=== PATIENT | female | born 1935 | race Caucasian/White ===

== ENCOUNTER 2017-07-05 10:09 | Inpatient (IN) ==
[2017-07-05] MEDS ORDERED: methylPREDNISolone SOD SUC 125 MG/2 ML VIAL IV STA (10:43)
[2017-07-05] MEDS ORDERED: ALBUTEROL/IPRATROPIUM 3 ML NEB RESP TX STA (10:43)
[2017-07-05] MEDS ORDERED: methylPREDNISolone SOD SUC 125 MG/2 ML VIAL ONE (10:49)
--- NOTE | 2017-07-05 11:05 | XRay Report ---
XR chest 1V portable Indication: Shortness of breath Comparison: 02 July 2017 Findings: The heart and mediastinum are stable in size and configuration. The pulmonary vascularity is increased with bilateral increased interstitial lung density, slightly improved compared to previous. No other lung infiltrates, effusions, pneumothorax or other abnormality is demonstrated. Impression: Findings suggest cardiac decompensation, slightly improved when compared to previous. PROCEDURE INTERPRETED AT [facility] DEPARTMENT OF RADIOLOGY Final Report Signed by: Dr. Codey Cabral
[2017-07-05 11:21] LABS: Basophils % 0.5 % (0.0-0.8); Eosinophils # 0.1 10*3/uL (0.0-0.87); Eosinophils % 2.2 % (0.00-10.9); Hematocrit 28.9 VOL% (35.7-47.0); Hemoglobin 9.3 GM/DL (12.0-16.0); Immature Granulocytes % 0.5 %; Immature Granulocytes Absolute 0.02 #; Lymphocytes # 0.5 10*3/uL (1.4-4.0); Lymphocytes % 12.3 % (21.3-54.2); Mean Corpuscular HGB Conc 32.2 GM/DL (32-36); Mean Corpuscular Hemoglobin 27 PG (27-34); Mean Platelet Volume 9.6 FL (9.6-12.0); Monocytes # 0.3 10*3/uL (0.11-0.8); Monocytes % 6.5 % (1.7-12.7); Neutrophils # 3.2 10*3/uL (1.4-7.4); Platelet Count 192 T/CUMM (130-400); Red Blood Count 3.44 MC/CUMM (3.8-5.5); Red Cell Distribution Width 15.5 % (9.3-17.3); White Blood Count 4.1 T/CUMM (4-12)
[2017-07-05] MEDS ORDERED: BUMETANIDE 1 MG/4 ML VIAL IV STA (11:23)
[2017-07-05] MEDS ORDERED: BUMETANIDE 1 MG/4 ML VIAL ONE (11:29)
--- NOTE | 2017-07-05 11:59 | Emergency Department Note ---
Christiano Bah Gwan, am scribing for, and in the presence of, Tom Leos MD 10:35. Deric Bah Phillip K, MD, personally performed the services described in this documentation, ascribed by Nemo Alvarado in my presence, and it is both accurate and complete . Arrival - Arrival Chief Complaint: Shortness of Breath ED Nursing Triage Note: PT TO ER 11 VIA EMS COMING FROM HOME WITH C/O HAVING SOB ONSET WEDNESDAY. PT WAS SEEN HERE IN ER FOR SAME COMPLAINT AND WAS DIAGNOSED WITH CHF/ BRONCHITIS SENT HOME ON LEVAQUIN STATES SHE JUST ISNT ANY BETTER. Mode of Arrival: Stretcher Limitations: No Limitations Source: Patient, Old Records Reviewed, RN Notes Reviewed Time Seen by Provider: 07/05/17 10:33 - History of Present Illness HPI Narrative: Patient is a 81 y/o female who presents to the ED via EMS with a c/o SOB, productive cough with clear sputum and RANGEL with an onset 1 week ago. Pt has a PMHx of MA, HTN, CAD, Afib, COPD, pneumonia, asthma, colon ca and stent placement. Patient stated that she was last seen in ED 06/22/2017 and 2016. During those visits, pt was dx with Bronchitis and CHF. Patient was give Levaquin with no relief. She continued to note that her sxs have progressively worsened prompting her visit to ED this morning for further evaluation. She denies having any chills or fever. Patient is followed by Dr. Yadav. No other problems/complaints reported in ED. Onset (ago): day(s) Consistency: constant Severity: moderate Allergies/Adverse Reactions: Allergies Allergy/AdvReac Type Severity Reaction Status Date / Time ceftriaxone [From Rocephin] Allergy Severe HIVES Verified 07/05/17 10:25 Iodinated Contrast Media - Allergy Severe ANAPHYLAXIS Verified 07/05/17 10:25 Oral and [Iodinated Contrast Media - IV Dye] sulfamethoxazole Allergy Severe Swelling Verified 07/05/17 10:25 [From Bactrim] of Lip/Tongue/Throat trimethoprim [From Bactrim] Allergy Severe Swelling Verified 07/05/17 10:25 of Lip/Tongue/Throat Corticosteroids AdvReac Severe Chest Pain Verified 07/05/17 10:25 (Glucocorticoids) morphine AdvReac Severe Cramping Verified 07/05/17 10:25 of the Muscles albuterol AdvReac Intermediate Palpitation Verified 07/05/17 10:25 s dicyclomine [From Bentyl] AdvReac Mild Nausea Verified 07/05/17 10:25 meperidine [From Demerol] AdvReac Mild Anxiety Verified 07/05/17 10:25 Home Medications: Home Medications Medication Instructions Recorded Confirmed Type Bumetanide Tab [Bumex Tab] 2 mg PO BID 08/01/15 07/05/17 History Dexlansoprazole [Dexilant] 60 mg PO DAILY 08/01/15 07/05/17 History Aspirin EC Tab 325 mg PO DAILY 11/01/15 07/05/17 History Cyanocobalamin Inj [Vitamin B12 1,000 mcg IM WE 11/01/15 07/05/17 History Inj] Amiodarone Tab [Cordarone Tab] 200 mg PO DAILY 02/04/16 07/05/17 History Fexofenadine [Carol] 60 mg PO DAILY 02/04/16 07/05/17 History Magnesium Chloride [Mag Delay] 64 mg PO BID 02/04/16 07/05/17 History Bisoprolol [Zebeta] 5 mg PO BID 07/31/16 07/05/17 History Potassium Chloride 20 meq PO BID 07/31/16 07/05/17 History Roflumilast [Daliresp] 500 mcg PO DAILY 07/31/16 07/05/17 History Ferrous Sulfate [Ferrous Sulfate 325 mg PO DAILY #30 capsule 08/03/16 07/05/17 Rx Cap] ALPRAZolam [Alprazolam] 1 mg PO BEDTIME 07/05/17 07/05/17 History Fexofenadine [Carol] 180 mg PO DAILY 07/05/17 07/05/17 History Levalbuterol Neb [Xopenex Neb] 0.63 mg RESP TX RT Q8H 07/05/17 07/05/17 History Review of System - Review of System 12 point system: reviewed and no additional remarkable complaints except as stated - Review of System Constitutional: Present: as per HPI. Absent: chills, fever Respiratory: Present: as per HPI, cough Neurological: Present: as per HPI, headache Medical,Surgical,& Family Hx - Medical History Cardio: History of: Cardiac Dysrhythmia (A-fib), CHF (diastolic, h/o multiled echos with nL lvef), CAD, Hypertension, MA Neurology: History of: Seizures, Vertigo (dizziness post nerve block 11/01/2015) HEENT: History of: Eye Problem (cataracts) Rheumatology: History of;: Rheumatoid Arthritis Respiratory: History of: Asthma, Bronchitis, COPD, Pneumonia Gastrointestinal: History of: Gastrointestinal Cancer (COLON CANCER) Musculoskeletal: History of: Back/Neck Problems, Musculoskeletal Problems ( arthritis) Other: History of: Cancer - Surgical History Cardiac Surgeries: Sugical HX of: Cardiac Catheterization (STENTS PER TOUCHSTONE ) HEENT Surgeries: Surgical HX of: Eye Surgery (cataracts) Abdominal Surgeries: Surgical HX of: Appendectomy, Cholecystectomy, Colonoscopy (COLECTOMY) Reproductive Surgeries: Surgical HX of;: Hysterectomy Orthopedic Surgeries: Comment Only: Total Hip Replacement (left hip hardware) - Family History Family History: Reports;: Family Heart Disease - Social History Smoking Status: Never smoker Frequency of Alcohol Use: None Type of Drug Use: None Exam Vital Signs: Vital Signs Temperature 99.0 F 07/05/17 10:17 Pulse Rate 63 07/05/17 11:12 Respiratory Rate 16 07/05/17 11:12 Blood Pressure 107/40 07/05/17 10:17 O2 Sat by Pulse Oximetry 99 07/05/17 11:12 - General General appearance: alert, in no apparent distress - Head Head exam: Present: atraumatic, normocephalic - Eye Eye exam: Present: normal appearance, PERRL, EOMI - ENT ENT exam: Present: normal oropharynx, mucous membranes moist, TM's normal bilaterally, normal external ear exam - Neck Neck exam: Present: full ROM, trachea midline. Absent: tenderness - Chest Chest inspection: Present: symmetric chest wall rise. Absent: tenderness - Respiratory Respiratory exam: Present: rales (Bilaterally), wheezes (Patient has diffuse expiratory wheezes.) - Cardiovascular Cardiovascular exam: Present: normal rhythm, bradycardia - Abdominal Exam Abdominal exam: Present: soft, normal bowel sounds. Absent: distention, tenderness - Extremities Exam Extremities exam: Present: other (Patient has trace edema noted to left leg due to hx of left hip replacement. ). Absent: full ROM (Patient has limited ROm to left leg consistent with hx of left hip replacement. ) - Back Exam Back exam: Present: full ROM. Absent: tenderness - Neurological Exam Neurological exam: Present: alert, oriented X3, CN II-XII intact. Absent: motor sensory deficit - Psychiatric Psychiatric exam: Present: normal affect, normal mood - Skin Skin exam: Present: other (Patient has trace edema noted to left leg due to hx of left hip replacement. ) Course Course Narrative: Patient given duo nebs and Bumex in the ED. she continued to have some mild CHF on her chest x-ray and also some bronchospasm. She is not improving with outpatient therapy so we will admit to the hospitalist. Results - Labs CBC & BMP: 07/05/17 10:54 Lab Results: I have reviewed the patients labs Labs: Laboratory Tests 07/05/17 10:54 WBC 4.1 RBC 3.44 L Hgb 9.3 L Hct 28.9 L MCV 84.0 L Plt Count 192 Neut % (Auto) 78.0 H Lymph % (Auto) 12.3 L Lymph # (Auto) 0.5 L Laboratory Tests 07/05/17 10:54 D-Dimer, Quantitative 1.1 - Diagnostic Findings Procedure: Chest x-ray: report reviewed by me (Findings suggest cardiac decompensation, slightly improved when compared to previous. ) Critical Care Time Critical Care Time: No Disposition Clinical Impression: Acute exacerbation of chronic obstructive airways disease, Congestive heart failure, Anemia Case discussed with: patient, patient's family Disposition: Still a Patient Condition: Guarded Additional Instructions: Admit to the hospitalist.
[2017-07-05 12:06] LABS: Albumin 2.8 G/DL (3.4-5.0); Bilirubin,Total 0.4 MG/DL (0.2-1.0); Calcium 8.3 MG/DL (8.5-10.1); Magnesium 2.3 MG/DL (1.8-2.4); Potassium 3.9 MMOL/L (3.5-5.1); Total Protein 6.7 G/DL (6.4-8.3); Troponin I Only 0.023 NG/ML (0.00-0.045)
[2017-07-05] MEDS ORDERED: diphenhydrAMINE CAP 25 MG CAPSULE PO PRN (12:42)
[2017-07-05] MEDS ORDERED: guaiFENesin/DM ER 600-30 MG TABLET PO PRN (12:42)
[2017-07-05] MEDS ORDERED: ONDANSETRON 4 MG/2 ML VIAL IV PRN (12:42)
[2017-07-05] MEDS ORDERED: DOCUSATE SODIUM 100 MG CAPSULE PO PRN (12:42)
[2017-07-05] MEDS ORDERED: ACETAMINOPHEN 325 MG TABLET PO PRN (12:42)
--- NOTE | 2017-07-05 12:54 | Hospitalist History & Physical ---
Assessment and Plan - Time spent with patient Time spent with patient: Greater than 30 minutes (1) Acute exacerbation of CHF (congestive heart failure) Status: Acute Assessment and plan: 81-year-old white female with history of CAD status post SC 5, CHF, hypertension, colon cancer admitted by the hospitalist with CHF exacerbation. She will be placed on a monitored bed and gently diuresed due to her chronic kidney disease. Dr. Sylvester is her esl instructional assistant so cardiology will be consulted to evaluate. She does have bradycardia as well and this seems to be a new finding in the last few weeks. We will continue to monitor her renal function and blood pressure along with heart rate. Dr. Billingsley will see and examine patient and further recommendations to follow. Current Visit: Yes (2) Shortness of breath Status: Acute Current Visit: Yes (3) Bradycardia Status: Acute Current Visit: Yes (4) CKD (chronic kidney disease) Status: Acute Current Visit: No (5) CAD (coronary artery disease) Status: Acute Current Visit: No (6) H/O myocardial infarction, greater than 8 weeks Status: Acute Current Visit: No History of Present Illness Chief complaint: Shortness of breath and fatigue History of present illness: Ms. Lazo is a 81 year old white female with history of SC 5, hypertension, CAD, COPD, complicated pneumonia, asthma, and colon cancer presenting to the ED with a four-day history of progressive shortness of breath and fatigue with headache and cough. Patient was seen in the ED on 06/22/2017 and again on 2016 she was diagnosed with bronchitis and CHF and given Levaquin. Patient states this did not help and she progressively had more cough more shortness of breath and increasing fatigue. Upon exam, patient does have some conversational dyspnea with some mild rhonchi with the left greater than right. She has some mild pedal edema of the left lower extremity that she states has been there since her hip fracture a year ago. She has a low-grade fever of 99 and she has bradycardic with her heart rate in the 50s. She is satting 94% on 2 L of oxygen. Her creatinine is 1.7 which is her baseline per previous admissions, BNP is elevated at 1102 otherwise her labs are relatively normal. Chest ray is showing some cardiac decompensation with no infiltrates or effusions. Patient's esl instructional assistant is Dr. Sylvester and her pulmonary doctor is Dr. Khan. After discussion with Dr. Leos the ED physician and Dr. Billingsley the admitting hospitalist, it was agreed patient would be admitted for further evaluation and treatment. Patient's medicines have been reconciled and she is a full code. Home Medications Medication Instructions Recorded Confirmed Type Bumetanide Tab [Bumex Tab] 2 mg PO BID 08/01/15 07/05/17 History Dexlansoprazole [Dexilant] 60 mg PO DAILY 08/01/15 07/05/17 History Aspirin EC Tab 325 mg PO DAILY 11/01/15 07/05/17 History Cyanocobalamin Inj [Vitamin B12 1,000 mcg IM WE 11/01/15 07/05/17 History Inj] Amiodarone Tab [Cordarone Tab] 200 mg PO DAILY 02/04/16 07/05/17 History Fexofenadine [Carol] 60 mg PO DAILY 02/04/16 07/05/17 History Magnesium Chloride [Mag Delay] 64 mg PO BID 02/04/16 07/05/17 History Bisoprolol [Zebeta] 5 mg PO BID 07/31/16 07/05/17 History Potassium Chloride 20 meq PO BID 07/31/16 07/05/17 History Roflumilast [Daliresp] 500 mcg PO DAILY 07/31/16 07/05/17 History Ferrous Sulfate [Ferrous Sulfate 325 mg PO DAILY #30 capsule 08/03/16 07/05/17 Rx Cap] ALPRAZolam [Alprazolam] 1 mg PO BEDTIME 07/05/17 07/05/17 History Fexofenadine [Carol] 180 mg PO DAILY 07/05/17 07/05/17 History Levalbuterol Neb [Xopenex Neb] 0.63 mg RESP TX RT Q8H 07/05/17 07/05/17 History Allergies Allergy/AdvReac Type Severity Reaction Status Date / Time ceftriaxone [From Rocephin] Allergy Severe HIVES Verified 07/05/17 10:25 Iodinated Contrast Media - Allergy Severe ANAPHYLAXIS Verified 07/05/17 10:25 Oral and [Iodinated Contrast Media - IV Dye] sulfamethoxazole Allergy Severe Swelling Verified 07/05/17 10:25 [From Bactrim] of Lip/Tongue/Throat trimethoprim [From Bactrim] Allergy Severe Swelling Verified 07/05/17 10:25 of Lip/Tongue/Throat Corticosteroids AdvReac Severe Chest Pain Verified 07/05/17 10:25 (Glucocorticoids) morphine AdvReac Severe Cramping Verified 07/05/17 10:25 of the Muscles albuterol AdvReac Intermediate Palpitation Verified 07/05/17 10:25 s dicyclomine [From Bentyl] AdvReac Mild Nausea Verified 07/05/17 10:25 meperidine [From Demerol] AdvReac Mild Anxiety Verified 07/05/17 10:25 Medical,Surgical,& Family Hx - Medical History Cardio: History of: Cardiac Dysrhythmia (A-fib), CHF (diastolic, h/o multiled echos with nL lvef), CAD, Hypertension, SC Neurology: History of: Seizures, Vertigo (dizziness post nerve block 11/01/2015) HEENT: History of: Eye Problem (cataracts) Rheumatology: History of;: Rheumatoid Arthritis Respiratory: History of: Asthma, Bronchitis, COPD, Pneumonia Gastrointestinal: History of: Gastrointestinal Cancer (COLON CANCER) Musculoskeletal: History of: Back/Neck Problems, Musculoskeletal Problems ( arthritis) Other: History of: Cancer - Surgical History Cardiac Surgeries: Sugical HX of: Cardiac Catheterization (STENTS PER TOUCHSTONE ) HEENT Surgeries: Surgical HX of: Eye Surgery (cataracts) Abdominal Surgeries: Surgical HX of: Appendectomy, Cholecystectomy, Colonoscopy (COLECTOMY) Reproductive Surgeries: Surgical HX of;: Hysterectomy Orthopedic Surgeries: Comment Only: Total Hip Replacement (left hip hardware) - Family History Family History: Reports;: Family Heart Disease - Social History Smoking Status: Never smoker Frequency of Alcohol Use: None Type of Drug Use: None Marital Status: Lives With:: Spouse Functional capacity: uses cane/walker 12 point system: reviewed and no additional remarkable complaints except as stated Exam - Constitutional Vitals: Period Temp Pulse Resp BP Sys/Dorado Pulse Ox Last 24 Hr 99.0 F-99.0 F 53-63 15-20 107-107/40-40 94-99 Exam: Constitutional System: Mild distress. No tremulousness. Head: Normocephalic, atraumatic. Ears, Nose and Throat System: No evidence of Otitis or Mastoiditis. No epistaxis or discharge Eyes System: Pupils equal, round, and reactive. Extraocular muscles intact. Neck: Supple, without adenopathy, No jugular venous distention. No thyromegaly, neck mass, or prior surgery apparent. Respiratory System: Chest mild rhonchi, left greater than right to auscultation. Cardiovascular System: Heart with bradycardic rate and regular rhythm. No murmur. GI System: Abdomen soft, nontender. Normo active bowel sounds present. Well- healed midline incision Musculoskeletal System: limbs with left lower extremity with mild pedal edema. Diminished distal pulses. Neurological System: No discernable sensory deficit. No aphasia Psychiatric System: Conversation is rational Results - Labs CBC & BMP: 07/05/17 10:54 07/05/17 10:54 Lab Results: I have reviewed the past 24 hour labs - Impressions EKG is pending - Diagnostic Findings Procedure: Chest x-ray: report reviewed by me (Mild cardiac decompensation, no effusions or infiltrates)
[2017-07-05] MEDS ORDERED: BISOPROLOL 5 MG TABLET PO SCH (13:00)
[2017-07-05] MEDS ORDERED: ENOXAPARIN 30 MG/0.3 ML SYRINGE SUBCUT SCH (13:00)
[2017-07-05] MEDS ORDERED: NON-FORMULARY MEDICATION (Dexlansoprazole [Dexilant] 60 MG) PO SCH (13:00)
[2017-07-05 13:51] LABS: Risk Ratio 3.22; VLDL CHOLESTEROL 12.8 MG/DL
--- NOTE | 2017-07-05 14:31 | Cardiology Consult Note ---
<Margo Kahn E - Last Filed: 07/05/17 14:22> Assessment and Plan - Time spent with patient Time spent with patient: Greater than 30 minutes (due to assessment, plan, documentation, and medication review) (1) Acute exacerbation of CHF (congestive heart failure) Status: Acute Assessment and plan: See plan of care listed below. Current Visit: Yes Qualifiers: Congestive heart failure type: diastolic Qualified Code(s): I50.33 - Acute on chronic diastolic (congestive) heart failure (2) Shortness of breath Status: Acute Assessment and plan: See plan of care listed below. Current Visit: Yes (3) Bradycardia Status: Acute Assessment and plan: See plan of care listed below. Current Visit: Yes (4) CKD (chronic kidney disease) Status: Chronic Assessment and plan: See plan of care listed below. Current Visit: No Qualifiers: Chronic kidney disease stage: stage 4 (severe) Qualified Code(s): N18.4 - Chronic kidney disease, stage 4 (severe) (5) CAD (coronary artery disease) Status: Chronic Assessment and plan: See plan of care listed below. Current Visit: No (6) H/O myocardial infarction, greater than 8 weeks Status: Chronic Assessment and plan: See plan of care listed below. Current Visit: No (7) Paroxysmal atrial fibrillation Status: Chronic Assessment and plan: See plan of care listed below. Current Visit: No (8) Congestive heart failure Status: Chronic Current Visit: Yes Qualifiers: Congestive heart failure type: diastolic Congestive heart failure chronicity: acute on chronic Qualified Code(s): I50.33 - Acute on chronic diastolic (congestive) heart failure (9) COPD (chronic obstructive pulmonary disease) Status: Chronic Assessment and plan: See plan of care listed below. Current Visit: Yes History of Present Illness - Data of Consult Patient: known to practice within the last 3 years Consult date: 07/05/17 Requesting Physician: Destiny Woodruff Primary care physician: Krishna Khan - Consult Narrative Reason for consult: SOB, bradycardia, CHF History of present illness: Relief Mate: Dr. Sylvester PCP: Dr. Khan Ms. Lazo is a 81 y/o WF with a history of coronary artery disease s/p PCI, paroxysmal atrial fibrillation (on amiodarone), chronic diastolic heart failure , COPD, chronic renal insufficiency, chronic pain, mitral regurgitation, GERD, former smoker, hyperlipidemia, and anxiety. She also has a history of a left femur fracture approximately a year and a half ago. She has had numerous issues with this leg and it is now 2-1/2 inches shorter than the right one. She subsequently had a total hip replacement which has not improved her situation and she is to see Dr. Jem Wen in [place] regarding consideration of a redo of her surgery. She had a recent echocardiogram done 06/28/2017 which revealed EF 50%, moderate LVH, moderate MR, mild TR, mild MS. Ms. Fung presented to the emergency room this morning with a week long history of progressive shortness of breath and fatigue accompanied by headache and productive cough of clear/white sputum. She has also reported low-grade fever. She was seen in the emergency room twice within the past 2 weeks. At the 06/22/2017 visit, she was diagnosed with UTI and discharged. Her subsequent visit, she was diagnosed with bronchitis and CHF but she declined hospitalization. Upon arrival, her BNP was 1102, chest xray showed cardiac decompensation. Her D-dimer was mildly elevated at 1.1. Creatinine 1.7. Potassium 3.9, and magnesium 2.3. She is mildly anemic with H&H 9.3 and 28.9. EKG shows sinus bradycardia. She denies recent chest pain/burning or palpitations. She states that when her blood pressure rises, she tends to become fidgety, but she reports she has not felt that way recently. Dr. Gann to follow with further plan and addendum. IMPRESSION/PLAN: - CHF EXACERBATION: BNP 1102 with CXR suggesting cardiac decompensation. Continue aspirin, bumex, lasix. - SHORTNESS OF BREATH: Likely related to her CHF. We will continue diuresing her. - BRADYCARDIA: Given her heart failure symptoms and PAF, she would be best served with low dose beta leon and amiodarone to keep her from having frequent paroxysms of atrial fibrillation. We'll continue her amiodarone with hold parameters and decrease her bisoprolol dosage to 2.5 mg po BID with hold parameters. - CHRONIC KIDNEY DISEASE: Stage 4. Will need to avoid nephrotoxic agents. Will continue to monitor BMP. - CORONARY ARTERY DISEASE: Patient has a history of CAD s/p PCI. - H/O MYOCARDIAL INFARCTION: I've found no records on file detailing prior stent placement but she is reported to have 5 prior MD's and states her last C was 3 years ago. - PAROXYSMAL ATRIAL FIBRILLATION: Currently in sinus bradycardia. Patient has had frequent palpitations in the past, but tends to have bradycardia with saul blocking agents or antiarrhythmics. Continue aspirin for stroke prevention. She was recently in atrial fibrillation on 06/22/17. CHADSVASC score is 6; however she does have some mild anemia with H&H 9.3 and 28.9 which appears to be chronic. Given her age, creatinine, and weight, she would need low dose Eliquis for anticoagulation. We'll go ahead and start her on this and discontinue her Lovenox. If her atrial fibrillation continues to be difficult to manage due to her tachycardia and bradycardia, she may benefit from pacemaker implant. For now , we will try to maintain her with medications. - CHRONIC DIASTOLIC CHF: With recent EF 50%. BNP 1102 upon admission. Creatinine 1.7. Chest xray suggests cardiac decompensation. - COPD: Patient reports in the past when she has been treated with steroids, this has sent her in to CHF. CC: Darshan Billingsley MD - Home Medications and Allergies Home Medications: Home Medications Medication Instructions Recorded Confirmed Type Bumetanide Tab [Bumex Tab] 2 mg PO BID 08/01/15 07/05/17 History Dexlansoprazole [Dexilant] 60 mg PO DAILY 08/01/15 07/05/17 History Aspirin EC Tab 325 mg PO DAILY 11/01/15 07/05/17 History Cyanocobalamin Inj [Vitamin B12 1,000 mcg IM WE 11/01/15 07/05/17 History Inj] Amiodarone Tab [Cordarone Tab] 200 mg PO DAILY 02/04/16 07/05/17 History Fexofenadine [Carol] 60 mg PO DAILY 02/04/16 07/05/17 History Magnesium Chloride [Mag Delay] 64 mg PO BID 02/04/16 07/05/17 History Bisoprolol [Zebeta] 5 mg PO DIRECTED 07/31/16 07/05/17 History Potassium Chloride 20 meq PO BID 07/31/16 07/05/17 History Roflumilast [Daliresp] 500 mcg PO DAILY 07/31/16 07/05/17 History ALPRAZolam [Alprazolam] 1 mg PO BEDTIME 07/05/17 07/05/17 History Levalbuterol Neb [Xopenex Neb] 0.63 mg RESP TX RT Q8H 07/05/17 07/05/17 History amLODIPine [Norvasc] 5 mg PO DAILY 07/05/17 07/05/17 History Allergies/Adverse Reactions: Allergies Allergy/AdvReac Type Severity Reaction Status Date / Time ceftriaxone [From Rocephin] Allergy Severe HIVES Verified 07/05/17 10:25 Iodinated Contrast Media - Allergy Severe ANAPHYLAXIS Verified 07/05/17 10:25 Oral and [Iodinated Contrast Media - IV Dye] sulfamethoxazole Allergy Severe Swelling Verified 07/05/17 10:25 [From Bactrim] of Lip/Tongue/Throat trimethoprim [From Bactrim] Allergy Severe Swelling Verified 07/05/17 10:25 of Lip/Tongue/Throat Corticosteroids AdvReac Severe Chest Pain Verified 07/05/17 10:25 (Glucocorticoids) morphine AdvReac Severe Cramping Verified 07/05/17 10:25 of the Muscles albuterol AdvReac Intermediate Palpitation Verified 07/05/17 10:25 s dicyclomine [From Bentyl] AdvReac Mild Nausea Verified 07/05/17 10:25 meperidine [From Demerol] AdvReac Mild Anxiety Verified 07/05/17 10:25 Review of systems: - Constitutional: Present: fatigue, fever(s), headache(s), As per HPI. Absent: anorexia, chills, daytime sleepiness, excessive sweating, frequent falls, increased appetite, lethargy, malaise, night sweats, stops breathing during sleep, weakness, weight gain, weight loss, . - EENT Eyes: Present: As per HPI. Absent: blurry vision, diplopia, loss of vision Ears: Present: As per HPI. Absent: decreased hearing, ear discharge, ear pain Nose, mouth and throat: Present: As per HPI. Absent: dysphagia, epistaxis, headache(s), hoarseness, lip swelling, nasal congestion, neck mass, neck pain, sinus pressure, sore throat, throat swelling, tongue swelling, vertigo - Cardiovascular: Present: dyspnea, dyspnea on exertion, edema, as per HPI. Absent: chest pain at rest, chest pain with activity, claudication, diaphoresis , radiating jaw, neck or arm pain, lightheadedness, orthopnea, palpitations, PND - Respiratory: Present: dyspnea, dyspnea on exertion, cough, as per HPI. Absent : hemoptysis, wheezing, snoring, pain on inspiration - Gastrointestinal: Present: As per HPI. Absent: abdominal pain, bloating, change in bowel habits, constipation, diarrhea, heartburn, hematemesis, hematochezia, loose stools, melena, nausea, vomiting - Genitourinary: Present: As per HPI. Absent: difficulty urinating, dysuria, flank pain, hematuria, nocturia, urinary frequency, urinary incontinence - Musculoskeletal: Present: As per HPI. Absent: arthralgias, back pain, joint swelling, limited range of motion, muscle cramps, muscle weakness, myalgias - Neurological: Present: abnormal gait, As per HPI. Absent: abnormal speech, behavioral changes, confusion, convulsions, disequilibrium, dizziness, focal weakness, frequent falls, headache(s), memory loss, numbness, paresthesias, radicular pain, syncope, tremor(s) - Psychiatric: Present: As per HPI. Absent: anxiety, confusion, depression, panic attacks - Endocrine: Present: fatigue, As per HPI. Absent: cold intolerance, heat intolerance, polydipsia, polyphagia - Hematologic/Lymphatic: Present: As per HPI. Absent: easy bleeding, easy bruising, lymphadenopathy Medical,Surgical,& Family Hx - Medical History Cardio: History of: Cardiac Dysrhythmia (A-fib), CHF (diastolic, h/o multiled echos with nL lvef), CAD, Hypertension, MD Neurology: History of: Seizures, Vertigo (dizziness post nerve block 11/01/2015) HEENT: History of: Eye Problem (cataracts) Rheumatology: History of;: Rheumatoid Arthritis Respiratory: History of: Asthma, Bronchitis, COPD, Pneumonia Gastrointestinal: History of: Gastrointestinal Cancer (COLON CANCER) Musculoskeletal: History of: Back/Neck Problems, Musculoskeletal Problems ( arthritis) Other: History of: Cancer - Surgical History Cardiac Surgeries: Sugical HX of: Cardiac Catheterization (STENTS PER TOUCHSTONE ) HEENT Surgeries: Surgical HX of: Eye Surgery (cataracts) Abdominal Surgeries: Surgical HX of: Appendectomy, Cholecystectomy, Colonoscopy (COLECTOMY) Reproductive Surgeries: Surgical HX of;: Hysterectomy Orthopedic Surgeries: Comment Only: Total Hip Replacement (left hip hardware) - Family History Family History: Reports;: Family Heart Disease - Social History Smoking Status: Never smoker Frequency of Alcohol Use: None Type of Drug Use: None Marital Status: Lives With:: Spouse Functional capacity: uses cane/walker Physical Examination Vital Signs Temp Pulse Resp BP Pulse Ox 99.0 F 55 L 20 107/40 94 L 07/05/17 10:17 07/05/17 10:17 07/05/17 10:17 07/05/17 10:17 07/05/17 10:17 Exam: General appearance: Appears well. Pleasant and cooperative. Overweight, no acute distress. Head exam: Present: normal inspection, normocephalic, atraumatic. Absent: hematoma, laceration Eye exam: Present: EOMI. Absent: conjunctival injection, nystagmus, periorbital swelling, scleral icterus, laceration to eyelids, jaundice Pupils: Present: PERRL. Absent: constricted, dilated, fixed, irregular, unequal ENT exam: Present: normal exam, normal external ear exam, mucous membranes moist. Neck exam: Present: normal inspection, midline trachea. Absent: masses, lymphadenopathy, tenderness, thyromegaly, carotid bruit Respiratory exam: Present: Bibasilar crackles posteriorly, otherwise clear to auscultation bilaterally. Absent: accessory muscle use, chest wall tenderness, rhonchi, wheezing. Cardiovascular exam: Present: regular rate and rhythm. Systolic murmur. Absent: gallop, JVD, rubs GI/Abdominal exam: Present: normal bowel sounds, soft. Absent: distended, firm , hernia, mass, tenderness. Extremities exam: Present: Impaired Gait, No Clubbing, No Cyanosis, Upper Extr. Pulses 2+, Lower Extr. Pulses 2+, Trace LLE edema. Capillary refill less than 3 seconds. Musculoskeletal: Present: No Fluid Collection, No Pain, Normal Range of Motion Back exam: Present: normal inspection. Absent: muscle spasm, vertebral tenderness Neurological exam: Present: awake, alert, oriented X3, Moves all extremities well without hemiparesis or paralysis. Grossly intact without resting or essential tremor Psychiatric exam: Present: normal affect, normal mood Skin exam: Present: normal color, warm, dry, intact. Absent: cyanosis, diaphoretic, rash, urticaria Result/EKG - Labs CBC & BMP: 07/05/17 10:54 07/05/17 10:54 Lab Results: I have reviewed the past 24 hour labs Labs: Laboratory Results - last 24 hr 07/05/17 07/05/17 07/05/17 10:54 10:54 10:54 WBC 4.1 RBC 3.44 L Hgb 9.3 L Hct 28.9 L MCV 84.0 L MCH 27 MCHC 32.2 RDW 15.5 Plt Count 192 MPV 9.6 Neut % (Auto) 78.0 H Lymph % (Auto) 12.3 L [place] % (Auto) 6.5 Eos % (Auto) 2.2 Baso % (Auto) 0.5 Neut # (Auto) 3.2 Lymph # (Auto) 0.5 L [place] # (Auto) 0.3 Eos # (Auto) 0.1 Baso # (Auto) 0.0 Immature Gran % 0.5 Nucleated RBC % 0.0 Immature Gran # 0.02 Nucleated RBCs # 0.00 Immature Plt Fraction 0.0 D-Dimer, Quantitative 1.1 Sodium 136 Potassium 3.9 Chloride 103 Carbon Dioxide 24 Anion Gap 12.9 BUN 12 Creatinine 1.70 H GFR Calculation 27 BUN/Creatinine Ratio 7.00 Glucose 105 Calculated Osmolality 271.0 L Calcium 8.3 L Magnesium 2.3 Total Bilirubin 0.40 AST 16 ALT 12 L Alkaline Phosphatase 130 H Troponin I 0.023 B-Natriuretic Peptide Total Protein 6.7 Albumin 2.8 L Globulin 3.9 H Albumin/Globulin Ratio 0.7 L Triglycerides Cholesterol LDL Cholesterol VLDL Cholesterol HDL Cholesterol Heart Disease Risk Ratio 07/05/17 07/05/17 10:54 10:54 WBC RBC Hgb Hct MCV MCH MCHC RDW Plt Count MPV Neut % (Auto) Lymph % (Auto) [place] % (Auto) Eos % (Auto) Baso % (Auto) Neut # (Auto) Lymph # (Auto) [place] # (Auto) Eos # (Auto) Baso # (Auto) Immature Gran % Nucleated RBC % Immature Gran # Nucleated RBCs # Immature Plt Fraction D-Dimer, Quantitative Sodium Potassium Chloride Carbon Dioxide Anion Gap BUN Creatinine GFR Calculation BUN/Creatinine Ratio Glucose Calculated Osmolality Calcium Magnesium Total Bilirubin AST ALT Alkaline Phosphatase Troponin I B-Natriuretic Peptide 1102 H Total Protein Albumin Globulin Albumin/Globulin Ratio Triglycerides 64 Cholesterol 145 LDL Cholesterol 87.0 VLDL Cholesterol 12.8 HDL Cholesterol 45 Heart Disease Risk Ratio 3.22 - EKG EKG results: interpreted by me, sinus rhythm EKG shows: bradycardia <Junie Gann - Last Filed: 07/05/17 17:09> History of Present Illness - Consult Narrative History of present illness: I have personally interviewed and evaluated the patient, reviewed the chart and discussed medical decision-making with practitioner Femi. I have read this note and agree with her documentation here in. CC: Darshan Billingsley MD Physical Examination Vital Signs Temp Pulse Resp BP Pulse Ox 99.0 F 55 L 20 107/40 94 L 07/05/17 10:17 07/05/17 10:17 07/05/17 10:17 07/05/17 10:17 07/05/17 10:17 Result/EKG - Labs CBC & BMP: 07/05/17 10:54 07/05/17 10:54 Labs: Laboratory Results - last 24 hr 07/05/17 07/05/17 07/05/17 10:54 10:54 10:54 WBC 4.1 RBC 3.44 L Hgb 9.3 L Hct 28.9 L MCV 84.0 L MCH 27 MCHC 32.2 RDW 15.5 Plt Count 192 MPV 9.6 Neut % (Auto) 78.0 H Lymph % (Auto) 12.3 L [place] % (Auto) 6.5 Eos % (Auto) 2.2 Baso % (Auto) 0.5 Neut # (Auto) 3.2 Lymph # (Auto) 0.5 L [place] # (Auto) 0.3 Eos # (Auto) 0.1 Baso # (Auto) 0.0 Immature Gran % 0.5 Nucleated RBC % 0.0 Immature Gran # 0.02 Nucleated RBCs # 0.00 Immature Plt Fraction 0.0 D-Dimer, Quantitative 1.1 Sodium 136 Potassium 3.9 Chloride 103 Carbon Dioxide 24 Anion Gap 12.9 BUN 12 Creatinine 1.70 H GFR Calculation 27 BUN/Creatinine Ratio 7.00 Glucose 105 Calculated Osmolality 271.0 L Calcium 8.3 L Magnesium 2.3 Total Bilirubin 0.40 AST 16 ALT 12 L Alkaline Phosphatase 130 H Troponin I 0.023 B-Natriuretic Peptide Total Protein 6.7 Albumin 2.8 L Globulin 3.9 H Albumin/Globulin Ratio 0.7 L Triglycerides Cholesterol LDL Cholesterol VLDL Cholesterol HDL Cholesterol Heart Disease Risk Ratio 10/02/17 10/02/17 10:54 10:54 WBC RBC Hgb Hct MCV MCH MCHC RDW Plt Count MPV Neut % (Auto) Lymph % (Auto) [place] % (Auto) Eos % (Auto) Baso % (Auto) Neut # (Auto) Lymph # (Auto) [place] # (Auto) Eos # (Auto) Baso # (Auto) Immature Gran % Nucleated RBC % Immature Gran # Nucleated RBCs # Immature Plt Fraction D-Dimer, Quantitative Sodium Potassium Chloride Carbon Dioxide Anion Gap BUN Creatinine GFR Calculation BUN/Creatinine Ratio Glucose Calculated Osmolality Calcium Magnesium Total Bilirubin AST ALT Alkaline Phosphatase Troponin I B-Natriuretic Peptide 1102 H Total Protein Albumin Globulin Albumin/Globulin Ratio Triglycerides 64 Cholesterol 145 LDL Cholesterol 87.0 VLDL Cholesterol 12.8 HDL Cholesterol 45 Heart Disease Risk Ratio 3.22
[2017-07-05] MEDS: LEVALBUTEROL 0.63 MG/3 ML NEB RESP TX SCH (14:45)
[2017-07-05] MEDS: FUROSEMIDE 40 MG/4 ML VIAL IV SCH ×2 (15:39→20:29)
[2017-07-05] MEDS: PANTOPRAZOLE 40 MG TABLET PO SCH (15:40)
[2017-07-05] MEDS: AMIODARONE 200 MG TABLET PO SCH (15:42)
[2017-07-05] MEDS: ASPIRIN EC 325 MG TABLET PO SCH (15:42)
[2017-07-05] MEDS: BUMETANIDE 1 MG TABLET PO SCH ×2 (15:42→20:26)
[2017-07-05] MEDS: POTASSIUM CHLORIDE 20 MEQ TABLET PO SCH ×2 (15:43→20:28)
[2017-07-05] MEDS: MAGNESIUM CHLORIDE 64 MG TABLET PO SCH ×2 (15:43→20:27)
[2017-07-05] MEDS: ROFLUMILAST 500 MCG TABLET PO SCH (15:43)
[2017-07-05] MEDS: FERROUS SULFATE 325 MG TABLET PO SCH (16:10)
[2017-07-05] MEDS: BISOPROLOL 5 MG TABLET PO SCH (20:27)
[2017-07-05] MEDS: ALPRAZolam 0.5 MG TABLET PO SCH (20:27)
[2017-07-05] MEDS: APIXABAN 2.5 MG TABLET PO SCH (20:37)
[2017-07-06] MEDS: LEVALBUTEROL 0.63 MG/3 ML NEB RESP TX SCH ×4 (00:12→23:27)
[2017-07-06] MEDS: FUROSEMIDE 40 MG/4 ML VIAL IV SCH ×4 (02:23→22:40)
[2017-07-06 07:08] LABS: Basophils % 0.7 % (0.0-0.8); Eosinophils # 0.1 10*3/uL (0.0-0.87); Eosinophils % 2.4 % (0.00-10.9); Hematocrit 32.9 VOL% (35.7-47.0); Hemoglobin 10.5 GM/DL (12.0-16.0); Immature Granulocytes % 0.3 %; Immature Granulocytes Absolute 0.02 #; Mean Corpuscular HGB Conc 31.9 GM/DL (32-36); Mean Corpuscular Hemoglobin 27 PG (27-34); Mean Corpuscular Volume 84.8 FL (87-102); Mean Platelet Volume 9.6 FL (9.6-12.0); Monocytes # 0.4 10*3/uL (0.11-0.8); Monocytes % 7.3 % (1.7-12.7); Neutrophils # 4.3 10*3/uL (1.4-7.4); Neutrophils % 72.3 % (38.7-73.9); Platelet Count 286 T/CUMM (130-400); Red Blood Count 3.88 MC/CUMM (3.8-5.5); Red Cell Distribution Width 15.6 % (9.3-17.3); White Blood Count 5.9 T/CUMM (4-12)
--- NOTE | 2017-07-06 07:29 | DUMMY REPORT TO COMPLETE ORDER ---
See report scanned to EMR
[2017-07-06 07:39] LABS: Calcium 8.2 MG/DL (8.5-10.1); Magnesium 2.2 MG/DL (1.8-2.4); Osmolality,Calculated 270.8 MOS/KG (273-304); Potassium 3.6 MMOL/L (3.5-5.1)
[2017-07-06] MEDS: BUMETANIDE 1 MG TABLET PO SCH ×2 (08:58→20:57)
[2017-07-06] MEDS: PANTOPRAZOLE 40 MG TABLET PO SCH (08:58)
[2017-07-06] MEDS: MAGNESIUM CHLORIDE 64 MG TABLET PO SCH ×2 (08:58→20:59)
[2017-07-06] MEDS: ASPIRIN EC 325 MG TABLET PO SCH (08:59)
[2017-07-06] MEDS: AMIODARONE 200 MG TABLET PO SCH (08:59)
[2017-07-06] MEDS: APIXABAN 2.5 MG TABLET PO SCH (08:59)
[2017-07-06] MEDS: FERROUS SULFATE 325 MG TABLET PO SCH (08:59)
[2017-07-06] MEDS: POTASSIUM CHLORIDE 20 MEQ TABLET PO SCH ×2 (08:59→20:59)
[2017-07-06] MEDS: BISOPROLOL 5 MG TABLET PO SCH ×2 (09:00→20:58)
[2017-07-06] MEDS: ROFLUMILAST 500 MCG TABLET PO SCH (09:00)
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
--- NOTE | 2017-07-06 12:05 | Hospitalist Progress Note ---
Assessment and Plan - Time spent with patient Time spent with patient: Less than 30 minutes (1) Acute exacerbation of CHF (congestive heart failure) Status: Acute Assessment and plan: 81-year-old white female with history of CAD status post WI 5, CHF, hypertension, colon cancer admitted by the hospitalist with CHF exacerbation. She will be placed on a monitored bed and gently diuresed due to her chronic kidney disease. Dr. Sylvester is her color sprayer so cardiology will be consulted to evaluate. She does have bradycardia as well and this seems to be a new finding in the last few weeks. We will continue to monitor her renal function and blood pressure along with heart rate. Dr. Billingsley will see and examine patient and further recommendations to follow. 07/06/2017 patient feels much better this morning and she looks much better. She still has a few rales in her bilateral lung bases but much improved from admission. Her BNP is mildly higher at 1315 today yet she feels and looks better. Her creatinine is stable at 1.8. She is afebrile and she continues to be bradycardic with pulse in the 50s. Cardiology is following and managing with medications. Dr. Khan has also seen the patient this morning and recommended continuing current care. Dr. Billingsley will see and examine patient and further recommendations to follow. Current Visit: Yes Qualifiers: Congestive heart failure type: diastolic Qualified Code(s): I50.33 - Acute on chronic diastolic (congestive) heart failure (2) Shortness of breath Status: Acute Current Visit: Yes (3) Bradycardia Status: Acute Current Visit: Yes (4) CKD (chronic kidney disease) Status: Chronic Current Visit: No Qualifiers: Chronic kidney disease stage: stage 4 (severe) Qualified Code(s): N18.4 - Chronic kidney disease, stage 4 (severe) (5) CAD (coronary artery disease) Status: Chronic Current Visit: No (6) H/O myocardial infarction, greater than 8 weeks Status: Chronic Current Visit: No Hospitalist: Subjective Interval history: Patient feels much better this morning. She has had less coughing. She is eating and drinking well. Exam - Constitutional Vitals: Period Temp Pulse Resp BP Sys/Dorado Pulse Ox Last 24 Hr 98.0 F-99.5 F 56-66 16-24 117-131/46-60 91-100 Exam: 81-year-old white female, no acute distress, alert and oriented Chest with few rails bilateral lung bases left greater than right CV regular rate and rhythm Abdomen soft and nontender Extremities left with minimal pedal edema Results - Labs CBC & BMP: 07/06/17 04:38 07/06/17 04:38 Lab Results: I have reviewed the past 24 hour labs - Diagnostic Findings Procedure: Chest x-ray: pending
--- NOTE | 2017-07-06 13:11 | Ultrasound Report ---
Venous Doppler ultrasound bilateral lower extremities Indication: Edema Comparison: None available Findings: No evidence of echogenic, noncompressible thrombus seen in the visualized veins of the extremities. Color Doppler venous waveform pattern is within normal limits. Impression: No evidence of deep venous thrombosis. Ultrasound images stored and captured. PROCEDURE INTERPRETED AT [facility] DEPARTMENT OF RADIOLOGY Final Report Signed by: Dr. Codey Cabral
--- NOTE | 2017-07-06 14:14 | XRay Report ---
XR chest 1V portable Indication: Congestive heart failure Comparison: 05 July 2017 Findings: The heart and mediastinum are stable in size and configuration. The pulmonary vascularity is slightly decreased. No other lung infiltrates, effusions, pneumothorax or other abnormality is demonstrated. Impression: Findings suggest mild improvement cardiac decompensation. PROCEDURE INTERPRETED AT [facility] DEPARTMENT OF RADIOLOGY Final Report Signed by: Dr. Codey Cabral
--- NOTE | 2017-07-06 15:42 | Cardiology Progress Note ---
<Margo Kahn E - Last Filed: 07/06/17 16:29> Assessment and Plan - Time spent with patient Time spent with patient: Less than 30 minutes (1) Acute exacerbation of CHF (congestive heart failure) Status: Acute Assessment and plan: See plan of care listed below. Current Visit: Yes Qualifiers: Congestive heart failure type: diastolic Qualified Code(s): I50.33 - Acute on chronic diastolic (congestive) heart failure (2) Shortness of breath Status: Acute Assessment and plan: See plan of care listed below. Current Visit: Yes (3) Bradycardia Status: Acute Assessment and plan: See plan of care listed below. Current Visit: Yes (4) CKD (chronic kidney disease) Status: Chronic Assessment and plan: See plan of care listed below. Current Visit: No Qualifiers: Chronic kidney disease stage: stage 4 (severe) Qualified Code(s): N18.4 - Chronic kidney disease, stage 4 (severe) (5) CAD (coronary artery disease) Status: Chronic Assessment and plan: See plan of care listed below. Current Visit: No (6) H/O myocardial infarction, greater than 8 weeks Status: Chronic Assessment and plan: See plan of care listed below. Current Visit: No (7) Paroxysmal atrial fibrillation Status: Chronic Assessment and plan: See plan of care listed below. Current Visit: No (8) Congestive heart failure Status: Chronic Current Visit: Yes Qualifiers: Congestive heart failure type: diastolic Congestive heart failure chronicity: acute on chronic Qualified Code(s): I50.33 - Acute on chronic diastolic (congestive) heart failure (9) COPD (chronic obstructive pulmonary disease) Status: Chronic Assessment and plan: See plan of care listed below. Current Visit: Yes Cardiology - PN: Subj Interval history: Router Operator: Dr. Sylvester PCP: Dr. Khan SUMMARY: Ms. Lazo is a 81 y/o WF who is admitted to the hospital with CHF exacerbation after a week long history of shortness of breath and fatigue accompanied by headache and productive cough of clear/white sputum. She has a history of coronary artery disease s/p PCI, paroxysmal atrial fibrillation (on amiodarone), chronic diastolic heart failure, COPD, chronic renal insufficiency , chronic pain, mitral regurgitation, GERD, former smoker, hyperlipidemia, and anxiety. She had a recent echocardiogram done 06/28/2017 which revealed EF 50%, moderate LVH, moderate MR, mild TR, mild KS. We were consulted to aid in her management. JULY 06, 2017: Ms. Lazo is feeling much better today. We are continuing to follow her as she recovers from a CHF exacerbation and for her paroxysmal atrial fibrillation. With her mitral regurgitation, it would be best to keep her from having episodes of RVR. We will continue with amiodarone. Heart rates are in the 50s-60s and patient is asymptomatic. She reports she takes Zebeta at home PRN for palpitations. Although she has no significant edema and lungs sound much clearer today, her BNP is further elevated at 1315. We'll continue IV Lasix this evening and hopefully be able to transition to PO tomorrow. If she continues to do well, may be eligible for discharge as early as tomorrow. REVIEW OF SYSTEMS: CARDIAC: Denies chest pain, palpitations. RESPIRATORY: Denies shortness of breath. IMPRESSION/PLAN: - CHF EXACERBATION: Admission BNP 1102 with CXR suggesting cardiac decompensation. Continue aspirin, bumex, lasix. - SHORTNESS OF BREATH: Likely related to her CHF. We will continue diuresing her. - BRADYCARDIA: Given her heart failure symptoms, MR, and PAF, she would be best served with low dose beta leon and amiodarone to keep her from having frequent paroxysms of atrial fibrillation. We'll continue her amiodarone with hold parameters and decrease her bisoprolol dosage to 2.5 mg po BID with hold parameters. - CHRONIC KIDNEY DISEASE: Stage 4. Will need to avoid nephrotoxic agents. Will continue to monitor BMP. - CORONARY ARTERY DISEASE: Patient has a history of CAD s/p PCI. - H/O MYOCARDIAL INFARCTION: I've found no records on file detailing prior stent placement but she is reported to have 5 prior WI's and states her last [facility] was 3 years ago. - PAROXYSMAL ATRIAL FIBRILLATION: Currently in sinus bradycardia. Patient has had frequent palpitations in the past, but tends to have bradycardia with saul blocking agents or antiarrhythmics. Continue aspirin for stroke prevention. She was recently in atrial fibrillation on 06/22/17. CHADSVASC score is 6; however she does have some mild anemia with H&H 9.3 and 28.9 which appears to be chronic. We were going to start patient on chronic anticoagulaton; however, patient reports a history of prior GI hemorrhage approximately 10 years ago when she was previously on Coumadin which was discontinued by her GI doctor. I do not see a record of this in her chart; however, we will stop her NOAC and continue anticoagulation with Aspirin. - CHRONIC DIASTOLIC CHF: With recent EF 50%. BNP 1102 upon admission. Creatinine 1.8. - COPD: Patient reports in the past when she has been treated with steroids, this has sent her in to CHF. Exam (Progress Note) - Constitutional Vitals: Period Temp Pulse Resp BP Sys/Dorado Pulse Ox Last 24 Hr 98.2 F-99.6 F 58-66 16-24 111-131/52-60 91-100 Exam: General appearance: Appears well. Pleasant and cooperative. Overweight, no acute distress. Head exam: Present: normal inspection, normocephalic, atraumatic. Absent: hematoma, laceration Eye exam: Present: EOMI. Absent: conjunctival injection, nystagmus, periorbital swelling, scleral icterus, laceration to eyelids, jaundice Pupils: Present: PERRL. Absent: constricted, dilated, fixed, irregular, unequal ENT exam: Present: normal exam, normal external ear exam, mucous membranes moist. Neck exam: Present: normal inspection, midline trachea. Absent: masses, lymphadenopathy, tenderness, thyromegaly, carotid bruit Respiratory exam: Present: Scant crackles in right lower base posteriorly, much improved from yesterday, otherwise clear to auscultation bilaterally. Absent: accessory muscle use, chest wall tenderness, rhonchi, wheezing. Cardiovascular exam: Present: regular rate and rhythm. Systolic murmur. Absent: gallop, JVD, rubs GI/Abdominal exam: Present: normal bowel sounds, soft. Absent: distended, firm , hernia, mass, tenderness. Extremities exam: Present: Impaired Gait, No Clubbing, No Cyanosis, Upper Extr. Pulses 2+, Lower Extr. Pulses 2+, No significant BLE edema. Capillary refill less than 3 seconds. Musculoskeletal: Present: No Fluid Collection, No Pain, Normal Range of Motion Back exam: Present: normal inspection. Absent: muscle spasm, vertebral tenderness Neurological exam: Present: awake, alert, oriented X3, Moves all extremities well without hemiparesis or paralysis. Grossly intact without resting or essential tremor Psychiatric exam: Present: normal affect, normal mood Skin exam: Present: normal color, warm, dry, intact. Absent: cyanosis, diaphoretic, rash, urticaria Result/EKG - Labs CBC & BMP: 07/06/17 04:38 07/06/17 04:38 Lab Results: I have reviewed the past 24 hour labs Labs: Laboratory Results - last 24 hr 07/06/17 07/06/17 07/06/17 04:38 04:38 04:38 WBC 5.9 D RBC 3.88 Hgb 10.5 L Hct 32.9 L MCV 84.8 L MCH 27 MCHC 31.9 L RDW 15.6 Plt Count 286 D MPV 9.6 Neut % (Auto) 72.3 Lymph % (Auto) 17.0 L [place] % (Auto) 7.3 Eos % (Auto) 2.4 Baso % (Auto) 0.7 Neut # (Auto) 4.3 Lymph # (Auto) 1.0 L [place] # (Auto) 0.4 Eos # (Auto) 0.1 Baso # (Auto) 0.0 Immature Gran % 0.3 Nucleated RBC % 0.0 Immature Gran # 0.02 Nucleated RBCs # 0.00 Immature Plt Fraction 0.0 Sodium 137 Potassium 3.6 Chloride 98 Carbon Dioxide 31 Anion Gap 11.6 BUN 10 Creatinine 1.80 H GFR Calculation 25 BUN/Creatinine Ratio 5.00 L Glucose 77 Calculated Osmolality 270.8 L Calcium 8.2 L Magnesium 2.2 B-Natriuretic Peptide 1315 H - EKG EKG results: interpreted by me, sinus rhythm EKG shows: bradycardia <Junie Gann - Last Filed: 07/06/17 19:34> Cardiology - PN: Subj Interval history: I have personally interviewed and evaluated the patient, reviewed the chart and discussed medical decision-making with Practitioner Femi. I have read this note and agree with her documentation here in. Exam (Progress Note) - Constitutional Vitals: Period Temp Pulse Resp BP Sys/Dorado Pulse Ox Last 24 Hr 99.2 F-99.6 F 57-66 16-24 111-131/52-60 94-100 Result/EKG - Labs CBC & BMP: 07/06/17 04:38 07/06/17 04:38 Labs: Laboratory Results - last 24 hr 07/06/17 07/06/17 07/06/17 04:38 04:38 04:38 WBC 5.9 D RBC 3.88 Hgb 10.5 L Hct 32.9 L MCV 84.8 L MCH 27 MCHC 31.9 L RDW 15.6 Plt Count 286 D MPV 9.6 Neut % (Auto) 72.3 Lymph % (Auto) 17.0 L [place] % (Auto) 7.3 Eos % (Auto) 2.4 Baso % (Auto) 0.7 Neut # (Auto) 4.3 Lymph # (Auto) 1.0 L [place] # (Auto) 0.4 Eos # (Auto) 0.1 Baso # (Auto) 0.0 Immature Gran % 0.3 Nucleated RBC % 0.0 Immature Gran # 0.02 Nucleated RBCs # 0.00 Immature Plt Fraction 0.0 Sodium 137 Potassium 3.6 Chloride 98 Carbon Dioxide 31 Anion Gap 11.6 BUN 10 Creatinine 1.80 H GFR Calculation 25 BUN/Creatinine Ratio 5.00 L Glucose 77 Calculated Osmolality 270.8 L Calcium 8.2 L Magnesium 2.2 B-Natriuretic Peptide 1315 H
--- NOTE | 2017-07-06 20:02 | DUMMY REPORT TO COMPLETE ORDER ---
See report scanned to EMR
[2017-07-06] MEDS: ALPRAZolam 0.5 MG TABLET PO SCH (20:57)
[2017-07-07] MEDS: FUROSEMIDE 40 MG/4 ML VIAL IV SCH ×2 (04:41→11:29)
[2017-07-07 06:29] LABS: Basophils # 0.1 10*3/uL (0.0-0.2); Basophils % 1.3 % (0.0-0.8); Eosinophils # 0.2 10*3/uL (0.0-0.87); Eosinophils % 4.8 % (0.00-10.9); Hematocrit 29.8 VOL% (35.7-47.0); Hemoglobin 9.6 GM/DL (12.0-16.0); Immature Granulocytes % 0.5 %; Immature Granulocytes Absolute 0.02 #; Mean Corpuscular HGB Conc 32.2 GM/DL (32-36); Mean Corpuscular Hemoglobin 27 PG (27-34); Mean Corpuscular Volume 83.5 FL (87-102); Mean Platelet Volume 9.4 FL (9.6-12.0); Monocytes # 0.3 10*3/uL (0.11-0.8); Monocytes % 7.7 % (1.7-12.7); Neutrophils # 2.4 10*3/uL (1.4-7.4); Neutrophils % 60.7 % (38.7-73.9); Platelet Count 229 T/CUMM (130-400); Red Blood Count 3.57 MC/CUMM (3.8-5.5); Red Cell Distribution Width 15.1 % (9.3-17.3); White Blood Count 3.9 T/CUMM (4-12)
[2017-07-07 07:04] LABS: Calcium 8.6 MG/DL (8.5-10.1); Magnesium 2.4 MG/DL (1.8-2.4); Osmolality,Calculated 274.7 MOS/KG (273-304)
[2017-07-07] MEDS: LEVALBUTEROL 0.63 MG/3 ML NEB RESP TX SCH ×3 (07:35→23:56)
--- NOTE | 2017-07-07 07:51 | XRay Report ---
XR chest 2V Indication: Congestive heart failure Comparison: 06 July 2017 Findings: The heart and mediastinum are normal in size and configuration. The pulmonary vascularity is normal in caliber. Lung volumes are increased with prominent bronchial markings. No lung infiltrates, effusions, pneumothorax or other abnormality is demonstrated. Impression: Chronic lung changes. No acute process or significant change. PROCEDURE INTERPRETED AT [facility] DEPARTMENT OF RADIOLOGY Final Report Signed by: Dr. Codey Cabral
[2017-07-07] MEDS: BISOPROLOL 5 MG TABLET PO SCH ×2 (09:36→22:28)
[2017-07-07] MEDS: MAGNESIUM CHLORIDE 64 MG TABLET PO SCH ×2 (09:37→22:30)
[2017-07-07] MEDS: AMIODARONE 200 MG TABLET PO SCH (09:37)
[2017-07-07] MEDS: POTASSIUM CHLORIDE 20 MEQ TABLET PO SCH ×2 (09:37→22:29)
[2017-07-07] MEDS: ROFLUMILAST 500 MCG TABLET PO SCH (09:37)
[2017-07-07] MEDS: PANTOPRAZOLE 40 MG TABLET PO SCH (09:37)
[2017-07-07] MEDS: FERROUS SULFATE 325 MG TABLET PO SCH (09:37)
[2017-07-07] MEDS: ASPIRIN EC 325 MG TABLET PO SCH (09:37)
[2017-07-07] MEDS: BUMETANIDE 1 MG TABLET PO SCH ×2 (09:43→22:28)
[2017-07-07] MEDS: ACETAMINOPHEN 325 MG TABLET PO PRN (09:44)
--- NOTE | 2017-07-07 11:14 | Cardiology Progress Note ---
<Margo Kahn E - Last Filed: 07/07/17 11:21> Assessment and Plan - Time spent with patient Time spent with patient: Less than 30 minutes (1) Acute exacerbation of CHF (congestive heart failure) Status: Acute Assessment and plan: See plan of care listed below. Current Visit: Yes Qualifiers: Congestive heart failure type: diastolic Qualified Code(s): I50.33 - Acute on chronic diastolic (congestive) heart failure (2) Shortness of breath Status: Acute Assessment and plan: See plan of care listed below. Current Visit: Yes (3) Bradycardia Status: Acute Assessment and plan: See plan of care listed below. Current Visit: Yes (4) CKD (chronic kidney disease) Status: Chronic Assessment and plan: See plan of care listed below. Current Visit: No Qualifiers: Chronic kidney disease stage: stage 4 (severe) Qualified Code(s): N18.4 - Chronic kidney disease, stage 4 (severe) (5) CAD (coronary artery disease) Status: Chronic Assessment and plan: See plan of care listed below. Current Visit: No (6) H/O myocardial infarction, greater than 8 weeks Status: Chronic Assessment and plan: See plan of care listed below. Current Visit: No (7) Paroxysmal atrial fibrillation Status: Chronic Assessment and plan: See plan of care listed below. Current Visit: No (8) Congestive heart failure Status: Chronic Current Visit: Yes Qualifiers: Congestive heart failure type: diastolic Congestive heart failure chronicity: acute on chronic Qualified Code(s): I50.33 - Acute on chronic diastolic (congestive) heart failure (9) COPD (chronic obstructive pulmonary disease) Status: Chronic Assessment and plan: See plan of care listed below. Current Visit: Yes Cardiology - PN: Subj Interval history: Molder Fitting: Dr. Sylvester PCP: Dr. Khan SUMMARY: Ms. Lazo is a 81 y/o WF who is admitted to the hospital with CHF exacerbation after a week long history of shortness of breath and fatigue accompanied by headache and productive cough of clear/white sputum. She has a history of coronary artery disease s/p PCI, paroxysmal atrial fibrillation (on amiodarone), chronic diastolic heart failure, COPD, chronic renal insufficiency , chronic pain, mitral regurgitation, GERD, former smoker, hyperlipidemia, and anxiety. She had a recent echocardiogram done 06/28/2017 which revealed EF 50%, moderate LVH, moderate MR, mild TR, mild NH. We were consulted to aid in her management. JULY 07, 2017: Ms. Lazo is feeling much better today. We are continuing to follow her as she recovers from a CHF exacerbation and for her paroxysmal atrial fibrillation. With her mitral regurgitation, it would be best to keep her from having episodes of RVR. We will continue with amiodarone. Heart rates are in the 50s-60s and patient is asymptomatic. She reports she takes Zebeta at home PRN for palpitations. She reports she is feeling much better since admission. BNP 513 today. Creatinine 1.6. From a cardiology standpoint, patient may be discharged home to follow up with Dr. Sylvester in 2-3 weeks. Patient will need to monitor weight daily. She has been instructed to monitor for a 3# weight gain in a 24 hour time period or 5# weight gain in 1 week time period. If her weight changes, she may require an additional dose of Lasix. If this occurs frequently, she will need to contact Dr. Sylvester's office to notify him. Dr. Gann to follow with further plan and addendum. REVIEW OF SYSTEMS: CARDIAC: Denies chest pain, palpitations. RESPIRATORY: Denies shortness of breath. IMPRESSION/PLAN: - CHF EXACERBATION: Admission BNP 1102 with CXR suggesting cardiac decompensation. Continue aspirin, bumex, lasix. Patient is overall much improved and from cardiology standpoint, may be discharged home. - SHORTNESS OF BREATH: Likely related to her CHF, now much improved. - BRADYCARDIA: Given her heart failure symptoms, MR, and PAF, she would be best served with low dose beta leon and amiodarone to keep her from having frequent paroxysms of atrial fibrillation. She may continue her home doses of these medications and keep Zebeta 5mg po BID NEEDED for palpitations. - CHRONIC KIDNEY DISEASE: Stage 4. Will need to avoid nephrotoxic agents. Will continue to monitor BMP. - CORONARY ARTERY DISEASE: Patient has a history of CAD s/p PCI. - H/O MYOCARDIAL INFARCTION: I've found no records on file detailing prior stent placement but she is reported to have 5 prior AL's and states her last [facility] was 3 years ago. - PAROXYSMAL ATRIAL FIBRILLATION: Currently in sinus bradycardia. Patient has had frequent palpitations in the past, but tends to have bradycardia with saul blocking agents or antiarrhythmics. Continue aspirin for stroke prevention. She was recently in atrial fibrillation on 06/22/17. CHADSVASC score is 6; however she does have some mild anemia with stable H&H which appears to be chronic. We were going to start patient on chronic anticoagulaton; however, patient reports a history of prior GI hemorrhage approximately 10 years ago when she was previously on Coumadin which was discontinued by her GI doctor. I do not see a record of this in her chart; however, we will stop her NOAC and continue anticoagulation with Aspirin. - CHRONIC DIASTOLIC CHF: With recent EF 50%. BNP 1102 upon admission. Creatinine 1.6. - COPD: Patient reports in the past when she has been treated with steroids, this has sent her in to CHF. - HYPOKALEMIA: Patient is on potassium supplementation at home with KDur 20mEq BID. She has diuresed well and potassium is down to 3.0 today. I'll give her an additional dose of 40mEq x1 today prior to discharge. Exam (Progress Note) - Constitutional Vitals: Period Temp Pulse Resp BP Sys/Dorado Pulse Ox Last 24 Hr 97.4 F-99.6 F 57-73 18-20 111-139/52-64 94-99 Exam: General appearance: Appears well. Pleasant and cooperative. Overweight, no acute distress. Head exam: Present: normal inspection, normocephalic, atraumatic. Absent: hematoma, laceration Eye exam: Present: EOMI. Absent: conjunctival injection, nystagmus, periorbital swelling, scleral icterus, laceration to eyelids, jaundice Pupils: Present: PERRL. Absent: constricted, dilated, fixed, irregular, unequal ENT exam: Present: normal exam, normal external ear exam, mucous membranes moist. Neck exam: Present: normal inspection, midline trachea. Absent: masses, lymphadenopathy, tenderness, thyromegaly, carotid bruit Respiratory exam: Present: clear to auscultation bilaterally. Absent: accessory muscle use, chest wall tenderness, rhonchi, wheezing. Cardiovascular exam: Present: regular rate and rhythm. Systolic murmur. Absent: gallop, JVD, rubs GI/Abdominal exam: Present: normal bowel sounds, soft. Absent: distended, firm , hernia, mass, tenderness. Extremities exam: Present: Impaired Gait, No Clubbing, No Cyanosis, Upper Extr. Pulses 2+, Lower Extr. Pulses 2+, No significant BLE edema. Capillary refill less than 3 seconds. Musculoskeletal: Present: No Fluid Collection, No Pain, Normal Range of Motion Back exam: Present: normal inspection. Absent: muscle spasm, vertebral tenderness Neurological exam: Present: awake, alert, oriented X3, Moves all extremities well without hemiparesis or paralysis. Grossly intact without resting or essential tremor Psychiatric exam: Present: normal affect, normal mood Skin exam: Present: normal color, warm, dry, intact. Absent: cyanosis, diaphoretic, rash, urticaria Result/EKG - Labs CBC & BMP: 07/07/17 05:33 07/07/17 05:33 Lab Results: I have reviewed the past 24 hour labs Labs: Laboratory Results - last 24 hr 07/07/17 07/07/17 07/07/17 05:33 05:33 05:33 WBC 3.9 L D RBC 3.57 L Hgb 9.6 L Hct 29.8 L MCV 83.5 L MCH 27 MCHC 32.2 RDW 15.1 Plt Count 229 MPV 9.4 L Neut % (Auto) 60.7 Lymph % (Auto) 25.0 Lumpkin % (Auto) 7.7 Eos % (Auto) 4.8 Baso % (Auto) 1.3 H Neut # (Auto) 2.4 Lymph # (Auto) 1.0 L Lumpkin # (Auto) 0.3 Eos # (Auto) 0.2 Baso # (Auto) 0.1 Immature Gran % 0.5 Nucleated RBC % 0.0 Immature Gran # 0.02 Nucleated RBCs # 0.00 Immature Plt Fraction 0.0 Sodium 138 Potassium 3.0 L Chloride 99 Carbon Dioxide 30 Anion Gap 12.0 BUN 9 Creatinine 1.60 H GFR Calculation 29 BUN/Creatinine Ratio 5.00 L Glucose 110 H Calculated Osmolality 274.7 Calcium 8.6 Magnesium 2.4 B-Natriuretic Peptide 513 H - EKG EKG results: interpreted by me, sinus rhythm EKG shows: bradycardia <Junie Gann - Last Filed: 07/07/17 17:29> Cardiology - PN: Subj Interval history: I have personally interviewed and evaluated the patient, reviewed the chart and discussed medical decision-making with practitioner Femi. I have read this note and agree with her documentation here in. Heart failure is much improved. Exam (Progress Note) - Constitutional Vitals: Period Temp Pulse Resp BP Sys/Dorado Pulse Ox Last 24 Hr 96.7 F-98.7 F 58-86 15-20 118-139/58-64 94-99 Result/EKG - Labs CBC & BMP: 07/07/17 05:33 07/07/17 05:33 Labs: Laboratory Results - last 24 hr 07/07/17 07/07/17 07/07/17 05:33 05:33 05:33 WBC 3.9 L D RBC 3.57 L Hgb 9.6 L Hct 29.8 L MCV 83.5 L MCH 27 MCHC 32.2 RDW 15.1 Plt Count 229 MPV 9.4 L Neut % (Auto) 60.7 Lymph % (Auto) 25.0 Lumpkin % (Auto) 7.7 Eos % (Auto) 4.8 Baso % (Auto) 1.3 H Neut # (Auto) 2.4 Lymph # (Auto) 1.0 L Lumpkin # (Auto) 0.3 Eos # (Auto) 0.2 Baso # (Auto) 0.1 Immature Gran % 0.5 Nucleated RBC % 0.0 Immature Gran # 0.02 Nucleated RBCs # 0.00 Immature Plt Fraction 0.0 Sodium 138 Potassium 3.0 L Chloride 99 Carbon Dioxide 30 Anion Gap 12.0 BUN 9 Creatinine 1.60 H GFR Calculation 29 BUN/Creatinine Ratio 5.00 L Glucose 110 H POC Glucose Calculated Osmolality 274.7 Calcium 8.6 Magnesium 2.4 B-Natriuretic Peptide 513 H 07/07/17 16:06 WBC RBC Hgb Hct MCV MCH MCHC RDW Plt Count MPV Neut % (Auto) Lymph % (Auto) Lumpkin % (Auto) Eos % (Auto) Baso % (Auto) Neut # (Auto) Lymph # (Auto) Lumpkin # (Auto) Eos # (Auto) Baso # (Auto) Immature Gran % Nucleated RBC % Immature Gran # Nucleated RBCs # Immature Plt Fraction Sodium Potassium Chloride Carbon Dioxide Anion Gap BUN Creatinine GFR Calculation BUN/Creatinine Ratio Glucose POC Glucose 162 H Calculated Osmolality Calcium Magnesium B-Natriuretic Peptide
[2017-07-07] MEDS ORDERED: POTASSIUM CHLORIDE 20 MEQ TABLET PO ONE (11:24)
--- NOTE | 2017-07-07 11:58 | Pulmonology Progress Note ---
Pulmonary - PN: Subj Interval history: Luiz Pascual[facility] acting as scribe for Dr. Krishna Khan Mrs. Lazo is an 81-year-old white female who we saw in initial pulmonary consultation on 07/06/2017. At that time, our impressions were: 1. Acute congestive heart failure 2. Arteriosclerotic heart disease. Stent. History of [place] 5 according to the patient. Past history of congestive heart failure 3. Chronic edema of the left ankle in the area of replete previous fracture. Look for deep venous thrombophlebitis 4. Previous colon cancer that required resection of the colon resulting in chronic diarrhea. 5. History of atrial fib 6. History of hyperlipidemia 7. Long-term amiodarone use. No evidence of pulmonary side effects 8. History of mild chronic renal failure 9. See past history 07/07/2017. The patient was seen today along with her . The patient's chest x-ray today shows small bilateral pleural effusions in the angles, but is markedly improved since previous films. The patient reports that her breathing is much improved as well. Echocardiogram done 07/06/[address] Gann showed an ejection fraction at 45%, the apex and inferior wall appeared akinetic , grade 3 diastolic dysfunction, left ventricular size was mildly increased, mildly increased left ventricular wall thickness, mildly enlarged right atrium size, the left atrium was mildly dilated, mild aortic sclerosis, mild tricuspid regurgitation, mild pulmonic regurgitation, and right ventricular systolic pressure was 32.09 mmHg. Medications have been reviewed. We made no changes today. Labs been reviewed. White count is 3900 with a normal differential; H&H 9.6/ 29.8; platelet count 229,000; creatinine improved to 1.60, BUN 9, sodium 138, potassium 3.0 (hypokalemia), magnesium 2.4; BNP has improved to 513 Exam (Progress Note) - Constitutional Vitals: Period Temp Pulse Resp BP Sys/Dorado Pulse Ox Last 24 Hr 97.4 F-99.6 F 57-73 16-20 111-139/52-64 94-99 Exam: Chest is wheeze free and fairly clear Heart with distant sounds but no gallop Abdomen is nontender and nondistended; bowel sounds are positive 4 Extremities with nothing to suggest acute deep venous thrombophlebitis; bilateral CHIKIS hose are in use Psychiatric oriented 3 Neurologic long-term motor function is intact Plan: Continue present treatment. The patient states that she will most likely be discharged home today. If she is, she can keep her regularly scheduled follow-up appointment with Dr. Khan. Results - Labs CBC & BMP: 07/07/17 05:33 07/07/17 05:33
[2017-07-07] MEDS ORDERED: CYANOCOBALAMIN 1000 MCG/1 ML VIAL IM SCH (12:47)
--- NOTE | 2017-07-07 15:35 | Hospitalist Progress Note ---
Assessment and Plan (1) Diastolic CHF Status: Chronic Assessment and plan: The patient has acute on chronic diastolic congestive heart failure due to cor pulmonale on account of chronic lung disease. We continue treatment of the patient's lung disease and diuretic medication. I anticipate discharge home on oral Bumex tomorrow. Current Visit: No (2) CKD (chronic kidney disease) Status: Chronic Current Visit: No Qualifiers: Chronic kidney disease stage: stage 4 (severe) Qualified Code(s): N18.4 - Chronic kidney disease, stage 4 (severe) (3) Acute exacerbation of chronic obstructive airways disease Status: Acute Current Visit: Yes Hospitalist: Subjective Interval history: Mrs. Fung continues improvement. She has less peripheral edema, less wheezing , and no rales on exam. I anticipate discharge home for tomorrow morning. Exam - Constitutional Vitals: Period Temp Pulse Resp BP Sys/Dorado Pulse Ox Last 24 Hr 96.7 F-99.4 F 58-86 15-20 116-139/55-64 94-99 General appearance: mild distress - Respiratory Respiratory exam: Present: decreased breath sounds, prolonged expiratory phase - Cardiovascular Cardiovascular exam: Present: regular rate and rhythm - GI/Abdominal GI/Abdominal exam: Present: normal bowel sounds Results - Labs CBC & BMP: 07/07/17 05:33 07/07/17 05:33 Labs: Echocardiogram reveals 45% left ventricular ejection fraction with some diastolic dysfunction.
[2017-07-07] MEDS ORDERED: FUROSEMIDE 40 MG TABLET PO SCH (16:00)
--- NOTE | 2017-07-07 16:07 | CT Report ---
CT head/brain wo con Indication: Suspected CVA Comparison: CT brain July 31, 2016 Technique: Multiple axial tomographic images of the brain were obtained without the use of intravenous contrast. Findings: Midline structures are nondisplaced. There is no convincing evidence of acute intracranial hemorrhage . No convincing evidence of hydrocephalus. Moderate global volume loss present. Moderate periventricular and subcortical hypoattenuation noted which is nonspecific but consistent with chronic microvascular ischemic change. Demyelinating process and vasculitis less likely considerations. The visualized paranasal sinuses and bilateral mastoid air cells are predominantly clear. Atherosclerotic calcifications demonstrated. IMPRESSION: No acute intracranial abnormality demonstrated. Probable chronic microvascular ischemic change and volume loss. The CT exam was performed using one or more of the following dose reduction techniques: Automated exposure control, adjustment of the mA and/or kV according to patient size, or use of iterative reconstruction technique. PROCEDURE INTERPRETED AT [facility] DEPARTMENT OF RADIOLOGY Final Report Signed by: Dr Isaac Foster
[2017-07-07] MEDS ORDERED: niCARdipine INJ 25 MG in SODIUM CHLORIDE 0.9% 240 ML IV PRN (16:16)
[2017-07-07] MEDS ORDERED: ALTEPLASE IV ONE ×2 (16:16)
[2017-07-07] MEDS ORDERED: LABETALOL 20 MG/4 ML SYRINGE IV PRN (16:16)
[2017-07-07] MEDS: SODIUM CHLORIDE 0.9% 1,000 ML IV SCH (16:56)
--- NOTE | 2017-07-07 16:57 | Event Note ---
I was called to see the patient due to change of physical examination. The patient's was interviewed. He was with the patient when she suddenly stopped talking and became aphasic. The patient was sitting at the side of the bed and became noticeably weak on the left side of the face and right arm and leg. Destiny DAVID was called to see the patient and confirm these findings. She immediately ordered CT scan of brain and the patient was sent to the scanner and then to coronary care unit. I discussed the situation with the patient's . I recommended that the patient received TPA. I gave the patient's information concerning the increased risk of TPA at age greater than 80 and that the TPA was more likely to be effective the sooner after the symptoms that it was given. The patient appears to have had an embolic stroke on account of her intermittent atrial fibrillation. She seems an ideal candidate for emergency TPA. The patient's gave written consent for TPA and confirmed that where she is able to speak the patient is likely to request action versus acceptance of the previous symptom. I confirmed with Dr. Yanes in the radiology suite that there was no evidence of hemorrhage on the patient's emergent CT scan. I coordinated care with the pharmacy and the patient's nurse in the CCU and confirmed that the computer had ordered weight-based dose of TPA. I witnessed the dose being given and the follow-up infusion started. The patient remains a phasic but is not having any shortness of breath or angina. Critical care time today is 74 minutes. I coordinated care with my relief Dr. Duran who will reevaluate the patient soon.
--- NOTE | 2017-07-07 18:11 | Neurology Consult Note ---
History of Present Illness History of present illness: 81 years old right-handed white lady with past medical history significant for atrial fibrillation, congestive heart failure admitted to the hospital with worsening of CHF and shortness of breath. She was being treated however today all of a sudden she developed severely speech difficulties with aphasia and right-sided weakness. She was felt a good candidate for TPA and hospitalist went ahead and give her TPA. I do not see NIH scoring report. I am not quite sure if it was done or not. Patient completed TPA. She is is still very aphasic. She is unable to swallow at this time. She is densely weak in the right side. She underwent CT of the head which revealed no acute abnormalities. Home Medications Medication Instructions Recorded Confirmed Type Bumetanide Tab [Bumex Tab] 2 mg PO BID 08/01/15 07/05/17 History Dexlansoprazole [Dexilant] 60 mg PO DAILY 08/01/15 07/05/17 History Aspirin EC Tab 325 mg PO DAILY 11/01/15 07/05/17 History Cyanocobalamin Inj [Vitamin B12 1,000 mcg IM WE 11/01/15 07/05/17 History Inj] Amiodarone Tab [Cordarone Tab] 200 mg PO DAILY 02/04/16 07/05/17 History Fexofenadine [Carol] 60 mg PO DAILY 02/04/16 07/05/17 History Magnesium Chloride [Mag Delay] 64 mg PO BID 02/04/16 07/05/17 History Bisoprolol [Zebeta] 5 mg PO DIRECTED 07/31/16 07/05/17 History Potassium Chloride 20 meq PO BID 07/31/16 07/05/17 History Roflumilast [Daliresp] 500 mcg PO DAILY 07/31/16 07/05/17 History ALPRAZolam [Alprazolam] 1 mg PO BEDTIME 07/05/17 07/05/17 History Levalbuterol Neb [Xopenex Neb] 0.63 mg RESP TX RT Q8H 07/05/17 07/05/17 History amLODIPine [Norvasc] 5 mg PO DAILY 07/05/17 07/05/17 History Allergies Allergy/AdvReac Type Severity Reaction Status Date / Time ceftriaxone [From Rocephin] Allergy Severe HIVES Verified 07/05/17 10:25 Iodinated Contrast Media - Allergy Severe ANAPHYLAXIS Verified 07/05/17 10:25 Oral and [Iodinated Contrast Media - IV Dye] sulfamethoxazole Allergy Severe Swelling Verified 07/05/17 10:25 [From Bactrim] of Lip/Tongue/Throat trimethoprim [From Bactrim] Allergy Severe Swelling Verified 07/05/17 10:25 of Lip/Tongue/Throat Corticosteroids AdvReac Severe Chest Pain Verified 07/05/17 10:25 (Glucocorticoids) morphine AdvReac Severe Cramping Verified 07/05/17 10:25 of the Muscles albuterol AdvReac Intermediate Palpitation Verified 07/05/17 10:25 s dicyclomine [From Bentyl] AdvReac Mild Nausea Verified 07/05/17 10:25 meperidine [From Demerol] AdvReac Mild Anxiety Verified 07/05/17 10:25 ROS unobtainable: due to mental status Medical,Surgical,& Family Hx - Medical History Cardio: History of: Cardiac Dysrhythmia (A-fib), CHF (diastolic, h/o multiled echos with nL lvef), CAD, Hypertension, HI Neurology: History of: Seizures, Vertigo (dizziness post nerve block 11/01/2015) HEENT: History of: Eye Problem (cataracts) Rheumatology: History of;: Rheumatoid Arthritis Respiratory: History of: Asthma, Bronchitis, COPD, Pneumonia Gastrointestinal: History of: Gastrointestinal Cancer (COLON CANCER) Musculoskeletal: History of: Back/Neck Problems, Musculoskeletal Problems ( arthritis) Other: History of: Cancer - Surgical History Cardiac Surgeries: Sugical HX of: Cardiac Catheterization (STENTS PER TOUCHSTONE ) HEENT Surgeries: Surgical HX of: Eye Surgery (cataracts) Abdominal Surgeries: Surgical HX of: Appendectomy, Cholecystectomy, Colonoscopy (COLECTOMY) Reproductive Surgeries: Surgical HX of;: Hysterectomy Orthopedic Surgeries: Comment Only: Total Hip Replacement (left hip hardware) - Family History Family History: Reports;: Family Heart Disease - Social History Smoking Status: Former smoker Frequency of Alcohol Use: None Type of Drug Use: None Exam - Constitutional Vitals: Period Temp Pulse Resp BP Sys/Dorado Pulse Ox Last 24 Hr 96.7 F-98.7 F 58-86 15-23 115-139/51-64 94-99 Exam: GENERAL: Patient is in no acute distress. NECK: Neck is supple. There is no JVD. No carotid bruits present. No thyroid masses. CVS: First and second heart sounds are normal. There is no S3 present. Regular rate and rhythm. RESPIRATORY: Lungs are clear to auscultation without any rales or rhonchi. ABDOMEN: Soft and non-tender. Bowel sounds are present. There is no hepatosplenomegaly. EXT: There is no palpable edema. Peripheral pulses are present. Skin: No rashes Central Nervous system: General: Alert, awake Speech: Significant expressive and some element of receptive aphasia Comprehension: Impaired Facial expressions: Normal Cranial Nerves: CN1/Olfactory: Normal CN II/ Optic: Normal, Visual Moseley right homonymous Jaquelin CN III, and : ANDREW & EOMI CN V: Normal & intact CN VII: Right central facial weak CNVIII: Normal CN XI/X/XI/XII: Intact and Normal Motor: Bulk and Tone is normal. Strength in the right 1-2/5 Strength in the left to assist Sensory: Cannot be assessed Reflexes: 1+ and symmetrical Cerebellar function: Cannot be assessed Toes: Equivocal Gait: Cannot be assessed Results - Labs CBC & BMP: 07/07/17 05:33 07/07/17 05:33 Assessment and Plan (1) Acute CVA (cerebrovascular accident) Status: Acute Assessment and plan: Risk factors included atrial fibrillation and CHF Recommend to start Xarelto 20 mg p.o. daily after 24 hours of TPA Consult PT OT and ST Swallowing evaluation Carotid ultrasound Consult TMR Thank you for the consult Current Visit: Yes
--- NOTE | 2017-07-07 18:18 | Event Note ---
I was asked to see Ms. Lazo in follow-up. She received IV TPA for acute ischemic CVA and had some initial improvement but then deteriorated to where she was a phasic with a right facial droop. I had a long discussion with her as well as the patient's son. They understand her poor prognosis. The patient's states that they had had prior discussions and that she did not wish to pursue any heroic measures such as CPR, ACLS, intubation or ventilatory support. We will comply with his wishes at this time to make her DNR.
[2017-07-07] MEDS: ALPRAZolam 0.5 MG TABLET PO SCH (22:30)
[2017-07-08 05:25] LABS: Calcium 8.9 MG/DL (8.5-10.1); Magnesium 2.5 MG/DL (1.8-2.4); Osmolality,Calculated 279.4 MOS/KG (273-304); Potassium 3.8 MMOL/L (3.5-5.1)
--- NOTE | 2017-07-08 07:43 | CT Report ---
CT brain Indication: Changing mental status Comparison: 07 July 2017 Technique: Axial CT imaging of the brain is performed without contrast with 3 mm increments. Findings: There is faint decreased density involving areas of the left the frontal lobe poorly defined but not clearly seen on the previous exam. There are subtle areas of increased density in the shah matter of the left frontal lobe. Left middle cerebral artery is dense compared to previous exam. No other evidence of hemorrhage, mass, mass effect midline shift or acute infarct seen. The remaining brain parenchyma attenuation and differentiation appears within normal limits. The ventricles and cisterns are normal in caliber. No cranial or skull base abnormality is identified. Impression: Decreased density involving areas of the left parietal lobe and increased density left middle cerebral artery, not present on the previous study could indicate evolving infarction. Small amount of increased density in the shah matter of the left frontal lobe could represent a small amount of subarachnoid hemorrhage. This CT exam was performed using one or more the following dose reduction techniques: Automated exposure control, adjustment of the MA and/or KV according to patient size, or use of iterative reconstruction technique. PROCEDURE INTERPRETED AT [facility] DEPARTMENT OF RADIOLOGY Final Report Signed by: Dr. Codey Cabral
[2017-07-08] MEDS: LEVALBUTEROL 0.63 MG/3 ML NEB RESP TX SCH ×3 (07:51→22:52)
--- NOTE | 2017-07-08 08:18 | Ultrasound Report ---
Carotid artery ultrasound Indication: Stroke Comparison: None available Color Doppler flow and spectral analysis was performed. Findings: Small amount of atherosclerotic plaque is present in both proximal internal carotid arteries. Right peak systolic velocity: Right CCA:85.9 cm/s. Right proximal Internal Carotid Artery is 105.5 cm/s. Ratio of flow is 1.2 Right distal Internal Carotid is 79.0 cm/s . Left peak systolic velocity: Left CCA:92.1 cm/s. Left proximal Internal carotid Artery is 88.1 cm/s . Ratio of flow is 1 Left distal Internal carotid Artery is 72.5cm/s Bilateral antegrade vertebral flow is seen. Impression: No evidence of hemodynamically significant stenosis is seen, 0-49% estimated stenosis. Consensus conference on the carotid ultrasound criteria used. Ultrasound images were captured and stored. PROCEDURE INTERPRETED AT [facility] DEPARTMENT OF RADIOLOGY Final Report Signed by: Dr. Codey Cabral
--- NOTE | 2017-07-08 08:46 | Hospitalist Progress Note ---
Assessment and Plan (1) Stroke due to embolism of left middle cerebral artery Status: Acute Assessment and plan: The patient has received TPA. The patient's symptoms initially improved and now has dense hemiparesis again. The patient is scheduled to receive Xarelto at [address] Kelsey Siu will reevaluate the patient prior to receiving the dose. The patient's CT scan reveals a small amount of hemorrhage and I am not certain the risk versus benefit of giving the Xarelto. The patient has no hemodynamic compromise at present. The patient's family has requested DNR status. Current Visit: Yes (2) Diastolic CHF Status: Chronic Assessment and plan: The patient has acute on chronic diastolic congestive heart failure due to cor pulmonale on account of chronic lung disease. We continue treatment of the patient's lung disease and diuretic medication. I anticipate discharge home on oral Bumex tomorrow. Current Visit: No (3) CKD (chronic kidney disease) Status: Chronic Current Visit: No Qualifiers: Chronic kidney disease stage: stage 4 (severe) Qualified Code(s): N18.4 - Chronic kidney disease, stage 4 (severe) (4) Acute exacerbation of chronic obstructive airways disease Status: Acute Current Visit: Yes Hospitalist: Subjective Interval history: Mrs. Fung had initial improvement of her aphasia and right-sided weakness after TPA was given. The patient's symptoms unfortunately returned within about an hour. The patient remains a phasic this morning and with right sided hemiparesis. The patient is awake and does not appear to be in any pain. She does have upper airway congestion. CT scan reveals right middle cerebral artery evolving infarct and small amount of subarachnoid hemorrhage. Exam - Constitutional Vitals: Period Temp Pulse Resp BP Sys/Dorado Pulse Ox Last 24 Hr 96.7 F-97.8 F 58-86 15-34 103-139/42-90 94-100 Exam: Constitutional System: Mild distress. No tremulousness. Head: Normocephalic, atraumatic. Ears, Nose and Throat System: No evidence of Otitis or Mastoiditis. No epistaxis or discharge Eyes System: Pupils equal, round, and reactive. Extraocular muscles intact. Left facial weakness Neck: Supple, without adenopathy, No jugular venous distention. No thyromegaly , neck mass, or prior surgery apparent. Respiratory System: Chest mild to moderate upper airway congestion to auscultation. Cardiovascular System: Heart with irregular rate and rhythm. No murmur. GI System: Abdomen soft, nontender. Normo active bowel sounds present. Musculoskeletal System: limbs with right hemiparesis Neurological System: Expressive aphasia Results - Labs CBC & BMP: 07/07/17 05:33 07/08/17 04:37 Lab Results: I have reviewed the past 24 hour labs
--- NOTE | 2017-07-08 09:21 | Cardiology Progress Note ---
<Margo Kahn E - Last Filed: 07/08/17 10:06> Assessment and Plan - Time spent with patient Time spent with patient: Less than 30 minutes (1) Acute CVA (cerebrovascular accident) Status: Acute Assessment and plan: See plan of care listed below. Current Visit: Yes (2) Acute exacerbation of CHF (congestive heart failure) Status: Acute Assessment and plan: See plan of care listed below. Current Visit: Yes Qualifiers: Congestive heart failure type: diastolic Qualified Code(s): I50.33 - Acute on chronic diastolic (congestive) heart failure (3) Shortness of breath Status: Acute Assessment and plan: See plan of care listed below. Current Visit: Yes (4) Bradycardia Status: Acute Assessment and plan: See plan of care listed below. Current Visit: Yes (5) CKD (chronic kidney disease) Status: Chronic Assessment and plan: See plan of care listed below. Current Visit: No Qualifiers: Chronic kidney disease stage: stage 4 (severe) Qualified Code(s): N18.4 - Chronic kidney disease, stage 4 (severe) (6) CAD (coronary artery disease) Status: Chronic Assessment and plan: See plan of care listed below. Current Visit: No (7) H/O myocardial infarction, greater than 8 weeks Status: Chronic Assessment and plan: See plan of care listed below. Current Visit: No (8) Paroxysmal atrial fibrillation Status: Chronic Assessment and plan: See plan of care listed below. Current Visit: No (9) Congestive heart failure Status: Chronic Current Visit: Yes Qualifiers: Congestive heart failure type: diastolic Congestive heart failure chronicity: acute on chronic Qualified Code(s): I50.33 - Acute on chronic diastolic (congestive) heart failure (10) COPD (chronic obstructive pulmonary disease) Status: Chronic Assessment and plan: See plan of care listed below. Current Visit: Yes Cardiology - PN: Subj Interval history: Diver Assistant: Dr. Sylvester PCP: Dr. Khan SUMMARY: Ms. Lazo is a 81 y/o WF who is admitted to the hospital with CHF exacerbation after a week long history of shortness of breath and fatigue accompanied by headache and productive cough of clear/white sputum. She has a history of coronary artery disease s/p PCI, paroxysmal atrial fibrillation (on amiodarone), chronic diastolic heart failure, COPD, chronic renal insufficiency , chronic pain, mitral regurgitation, GERD, former smoker, hyperlipidemia, and anxiety. She had a recent echocardiogram done 06/28/2017 which revealed EF 50%, moderate LVH, moderate MR, mild TR, mild UT. We were consulted to aid in her management. Ms. Lazo was making strides towards being able to be discharged but on the afternoon of 07/07/17, developed stroke symptoms with right -sided weakness and aphasia and was transferred to the ICU. Initial head CT revealed no acute abnormality. She was given TPA and her symptoms improved only to return within about an hour. CT head this morning reveals right middle cerebral artery evolving infarct and small amount of subarachnoid hemorrhage thus limiting our ability to place her on Xarelto or other anticoagulants. Her condition was discussed with her family and they elected to make her a DNR. JULY 08, 2017: Ms. Lazo is seen resting in the bed this morning in the CCU. We are following her post acute CVA. She is awake, but neurological exam is limited. She is aphasic and is not following commands appropriately for me this morning. She will move her left side and squeezes my hand in response to her hand being squeezed but continues to have right sided weakness and expressive aphasia. She does have some upper airway congestion and was unable to pass a swallowing evaluation. Carotid dopplers revealed no evidence of hemodynamically significant stenosis bilaterally, 0-49%. Her chest xray shows mild cardiac decompensation. She continues to have some mild CHF although this has improved since admission. She remains in sinus rhythm with well controlled rate. Blood pressures are stable. REVIEW OF SYSTEMS: Unable to obtain due to communication barrier. Patient is aphasic from CVA. IMPRESSION/PLAN: - ACUTE CVA: Neurology is following. She has a small subarachnoid hemorrhage which limits our ability to further anticoagulate her. She has a poor prognosis. Family has made her a DNR. Will continue to monitor. - CHF EXACERBATION: Admission BNP 1102 with CXR suggesting cardiac decompensation. Continue aspirin, bumex, lasix. Patient is overall much improved from CHF standpoint. - SHORTNESS OF BREATH: Likely related to her CHF, now much improved. - BRADYCARDIA: Given her heart failure symptoms, MR, and PAF, she would be best served with low dose beta leon and amiodarone to keep her from having frequent paroxysms of atrial fibrillation. She may continue her home doses of these medications and keep Zebeta 5mg po BID NEEDED for palpitations. - CHRONIC KIDNEY DISEASE: Stage 4. Will need to avoid nephrotoxic agents. Will continue to monitor BMP. - CORONARY ARTERY DISEASE: Patient has a history of CAD s/p PCI. - H/O MYOCARDIAL INFARCTION: I've found no records on file detailing prior stent placement but she is reported to have 5 prior AK's and states her last LHC was 3 years ago. - PAROXYSMAL ATRIAL FIBRILLATION: Currently in sinus bradycardia. Patient has had frequent palpitations in the past, but tends to have bradycardia with saul blocking agents or antiarrhythmics. Continue aspirin for stroke prevention. She was recently in atrial fibrillation on 06/22/17. CHADSVASC score is 6; however she does have some mild anemia with stable H&H which appears to be chronic. We were going to start patient on chronic anticoagulaton; however, she refused the medication and upon further interview, the patient reports a history of prior GI hemorrhage approximately 10 years ago when she was previously on Coumadin which was discontinued by her GI doctor. I do not see a record of this in her chart; however, we discontinued her NOAC and kept her on aspirin for anticoagulation. - CHRONIC DIASTOLIC CHF: With recent EF 50%. BNP 1102 upon admission, has been improving. Creatinine 1.6. - COPD: Patient reports in the past when she has been treated with steroids, this has sent her in to CHF. - HYPOKALEMIA: Patient is on potassium supplementation at home with KDur 20mEq BID. Will replete on an as needed basis. 3.8 today. Exam (Progress Note) - Constitutional Vitals: Period Temp Pulse Resp BP Sys/Dorado Pulse Ox Last 24 Hr 96.7 F-97.8 F 58-86 15-34 103-139/42-90 94-100 Exam: General appearance: In no acute distress. Head exam: Present: normal inspection, normocephalic, atraumatic. Absent: hematoma, laceration Eye exam: Present: EOMI. Absent: conjunctival injection, nystagmus, periorbital swelling, scleral icterus, laceration to eyelids, jaundice Pupils: Present: PERRL. Absent: constricted, dilated, fixed, irregular, unequal ENT exam: Present: normal exam, normal external ear exam, mucous membranes moist. Neck exam: Present: normal inspection, midline trachea. Absent: masses, lymphadenopathy, tenderness, thyromegaly, carotid bruit Respiratory exam: Present: upper airway congestion noted. coarse breath sounds. Absent: accessory muscle use, chest wall tenderness, wheezing. Cardiovascular exam: Present: regular rate and rhythm. Systolic murmur. Absent: gallop, JVD, rubs GI/Abdominal exam: Present: normal bowel sounds, soft. Absent: distended, firm , hernia, mass, tenderness. Extremities exam: Present: Impaired Gait, No Clubbing, No Cyanosis, Upper Extr. Pulses 2+, Lower Extr. Pulses 2+, No significant BLE edema. Capillary refill less than 3 seconds. Musculoskeletal: Present: No Fluid Collection, No Pain, Normal Range of Motion Neurological exam: Present: awake, expressive aphasia. Right sided weakness/ hemiparesis. Unable to adequately follow commands. Psychiatric exam: Present: normal affect, normal mood Skin exam: Present: normal color, warm, dry, intact. Absent: cyanosis, diaphoretic, rash, urticaria Result/EKG - Labs CBC & BMP: 07/07/17 05:33 07/08/17 04:37 Lab Results: I have reviewed the past 24 hour labs Labs: Laboratory Results - last 24 hr 07/07/17 07/08/17 07/08/17 16:06 04:37 04:37 Sodium 140 Potassium 3.8 Chloride 103 Carbon Dioxide 29 Anion Gap 11.8 BUN 12 Creatinine 1.60 H GFR Calculation 29 BUN/Creatinine Ratio 7.00 Glucose 123 H POC Glucose 162 H Calculated Osmolality 279.4 Calcium 8.9 Magnesium 2.5 H B-Natriuretic Peptide 584 H - EKG EKG results: interpreted by me, sinus rhythm <Junie Gann - Last Filed: 07/08/17 17:38> Cardiology - PN: Subj Interval history: I have personally interviewed and evaluated the patient, reviewed the chart and discussed medical decision-making with practitioner Femi. I have read this note and agree with her documentation here in. The patient was scheduled to be discharged home but unfortunately developed a severe stroke which recurred after TPA. She also has some mild subarachnoid hemorrhage. Her overall condition is guarded, she is now DNR. Exam (Progress Note) - Constitutional Vitals: Period Temp Pulse Resp BP Sys/Dorado Pulse Ox Last 24 Hr 97.2 F-97.8 F 58-74 15-34 95-139/42-90 96-100 Result/EKG - Labs CBC & BMP: 07/07/17 05:33 07/08/17 04:37 Labs: Laboratory Results - last 24 hr 07/08/17 07/08/17 04:37 04:37 Sodium 140 Potassium 3.8 Chloride 103 Carbon Dioxide 29 Anion Gap 11.8 BUN 12 Creatinine 1.60 H GFR Calculation 29 BUN/Creatinine Ratio 7.00 Glucose 123 H Calculated Osmolality 279.4 Calcium 8.9 Magnesium 2.5 H B-Natriuretic Peptide 584 H
--- NOTE | 2017-07-08 09:27 | XRay Report ---
XR chest 1V portable Indication: Respiratory failure Comparison: 07 July 2017 Findings: The heart and mediastinum are normal in size and configuration. The pulmonary vascularity is prominent but similar to previous exam. No lung infiltrates, effusions, pneumothorax or other abnormality is demonstrated. Impression: Prominent pulmonary vascularity, could indicate mild cardiac decompensation. PROCEDURE INTERPRETED AT [facility] DEPARTMENT OF RADIOLOGY Final Report Signed by: Dr. Codey Cabral
[2017-07-08] MEDS: BUMETANIDE 1 MG TABLET PO SCH ×2 (10:27→23:40)
[2017-07-08] MEDS: ROFLUMILAST 500 MCG TABLET PO SCH (10:27)
[2017-07-08] MEDS: FERROUS SULFATE 325 MG TABLET PO SCH (10:27)
[2017-07-08] MEDS: POTASSIUM CHLORIDE 20 MEQ TABLET PO SCH ×2 (10:27→23:40)
[2017-07-08] MEDS: AMIODARONE 200 MG TABLET PO SCH (10:27)
[2017-07-08] MEDS: BISOPROLOL 5 MG TABLET PO SCH ×2 (10:28→23:41)
[2017-07-08] MEDS: PANTOPRAZOLE 40 MG TABLET PO SCH (10:28)
[2017-07-08] MEDS: MAGNESIUM CHLORIDE 64 MG TABLET PO SCH ×2 (10:28→23:40)
--- NOTE | 2017-07-08 11:06 | Pulmonology Progress Note ---
Pulmonary - PN: Subj Interval history: Mrs. Lazo is an 81-year-old white female who we saw in initial pulmonary consultation on 07/06/2017. At that time, our impressions were: 1. Acute congestive heart failure 2. Arteriosclerotic heart disease. Stent. History of VT 5 according to the patient. Past history of congestive heart failure 3. Chronic edema of the left ankle in the area of replete previous fracture. Look for deep venous thrombophlebitis 4. Previous colon cancer that required resection of the colon resulting in chronic diarrhea. 5. History of atrial fib 6. History of hyperlipidemia 7. Long-term amiodarone use. No evidence of pulmonary side effects 8. History of mild chronic renal failure 9. See past history 07/07/2017. The patient was seen today along with her . The patient's chest x-ray today shows small bilateral pleural effusions in the angles, but is markedly improved since previous films. The patient reports that her breathing is much improved as well. Echocardiogram done 07/06/[address] Gann showed an ejection fraction at 45%, the apex and inferior wall appeared akinetic , grade 3 diastolic dysfunction, left ventricular size was mildly increased, mildly increased left ventricular wall thickness, mildly enlarged right atrium size, the left atrium was mildly dilated, mild aortic sclerosis, mild tricuspid regurgitation, mild pulmonic regurgitation, and right ventricular systolic pressure was 32.09 mmHg. Medications have been reviewed. We made no changes today. Labs been reviewed. White count is 3900 with a normal differential; H&H 9.6/ 29.8; platelet count 229,000; creatinine improved to 1.60, BUN 9, sodium 138, potassium 3.0 (hypokalemia), magnesium 2.4; BNP has improved to 513 07/08/2017. This patient had an acute CVA in the distribution of the left middle cerebral artery. Initially she responded to TPA but this did not last. See neurology note. Chest x-ray shows small residual bilateral pleural effusions. Patient has resolving congestive heart failure. BNP remains elevated 584. Electrolytes are normal. Creatinine is 1.6 with a BUN of 12. Patient's on a regular sinus rhythm. Exam (Progress Note) - Constitutional Vitals: Period Temp Pulse Resp BP Sys/Dorado Pulse Ox Last 24 Hr 97.4 F-99.6 F 57-73 16-20 111-139/52-64 94-99 Exam: Face. Face symmetric. No edema to lips or tongue. Neck. No masses. No meningismus. Lymphatics. No submandibular cervical supraclavicular adenopathy. Chest is wheeze free and fairly clear Heart with distant sounds but no gallop Abdomen is nontender and nondistended; bowel sounds are positive 4 Extremities with nothing to suggest acute deep venous thrombophlebitis; bilateral CHIKIS hose are in use Psychiatric. Awake. Believe the patient is aware of what is going on. Neurologic. Right face weakness. Left body paralysis. Plan: 07/07/2017. 1. Continue present treatment. 2. The patient states that she will most likely be discharged home today. If she is, she can keep her regularly scheduled follow-up appointment with Dr. Khan. 07/08/2017. 1. Continue on diuretics 2. Follow-up chest x-ray tomorrow also follow BNP and BMP Exam (Progress Note) - Constitutional Vitals: Period Temp Pulse Resp BP Sys/Dorado Pulse Ox Last 24 Hr 96.7 F-97.8 F 58-86 15-34 103-139/42-90 94-100 Results - Labs CBC & BMP: 07/07/17 05:33 07/08/17 04:37
[2017-07-08] MEDS: SODIUM CHLORIDE 0.9% 1,000 ML IV SCH (16:14)
[2017-07-08] MEDS ORDERED: RIVAROXABAN 15 MG TABLET PO SCH (18:00)
[2017-07-08] MEDS: ALPRAZolam 0.5 MG TABLET PO SCH (23:41)
[2017-07-09 02:50] LABS: Basophils % 0.3 % (0.0-0.8); Hematocrit 33.3 VOL% (35.7-47.0); Hemoglobin 10.3 GM/DL (12.0-16.0); Immature Granulocytes % 0.6 %; Immature Granulocytes Absolute 0.05 #; Lymphocytes # 0.5 10*3/uL (1.4-4.0); Lymphocytes % 6.6 % (21.3-54.2); Mean Corpuscular HGB Conc 30.9 GM/DL (32-36); Mean Corpuscular Hemoglobin 26 PG (27-34); Mean Corpuscular Volume 85.2 FL (87-102); Mean Platelet Volume 9.3 FL (9.6-12.0); Monocytes # 0.4 10*3/uL (0.11-0.8); Monocytes % 5.7 % (1.7-12.7); Neutrophils # 6.7 10*3/uL (1.4-7.4); Neutrophils % 86.8 % (38.7-73.9); Platelet Count 267 T/CUMM (130-400); Red Blood Count 3.91 MC/CUMM (3.8-5.5); Red Cell Distribution Width 15.6 % (9.3-17.3); White Blood Count 7.8 T/CUMM (4-12)
[2017-07-09 03:24] LABS: Calcium 8.7 MG/DL (8.5-10.1); Magnesium 2.5 MG/DL (1.8-2.4); Osmolality,Calculated 287.8 MOS/KG (273-304); Potassium 3.6 MMOL/L (3.5-5.1)
--- NOTE | 2017-07-09 07:03 | Cardiology Progress Note ---
<Joyce Ashford E - Last Filed: 07/09/17 06:53> Assessment and Plan - Time spent with patient Time spent with patient: Greater than 30 minutes (1) CKD (chronic kidney disease) Status: Chronic Assessment and plan: SEE PLAN OF CARE LISTED BELOW Current Visit: No Qualifiers: Chronic kidney disease stage: stage 2 (mild) Qualified Code(s): N18.2 - Chronic kidney disease, stage 2 (mild) (2) CAD (coronary artery disease) Status: Chronic Assessment and plan: SEE PLAN OF CARE LISTED BELOW Current Visit: No (3) H/O myocardial infarction, greater than 8 weeks Status: Chronic Assessment and plan: SEE PLAN OF CARE LISTED BELOW Current Visit: No (4) Chronic pain Status: Chronic Assessment and plan: SEE PLAN OF CARE LISTED BELOW Current Visit: No (5) Chronic renal insufficiency, stage II (mild) Status: Chronic Assessment and plan: SEE PLAN OF CARE LISTED BELOW Current Visit: No (6) Congestive heart failure Status: Acute Assessment and plan: SEE PLAN OF CARE LISTED BELOW Current Visit: No Qualifiers: Congestive heart failure type: diastolic Congestive heart failure chronicity: acute on chronic Qualified Code(s): I50.33 - Acute on chronic diastolic (congestive) heart failure (7) Bradycardia Status: Acute Assessment and plan: SEE PLAN OF CARE LISTED BELOW Current Visit: Yes (8) Paroxysmal atrial fibrillation Status: Chronic Assessment and plan: SEE PLAN OF CARE LISTED BELOW Current Visit: No (9) Acute CVA (cerebrovascular accident) Status: Acute Assessment and plan: SEE PLAN OF CARE LISTED BELOW Current Visit: Yes Cardiology - PN: Subj Interval history: [facility]: DR. MCDANIELS PCP: DR. RAMIREZ SUMMARY: Ms. Lazo is a 81 y/o WF who is admitted July 05, 2017 with acute on chronic diastolic CHF. History of known CAD S/P PCI, PAF (on Amiodarone), chronic diastolic heart failure, COPD, chronic renal insufficiency, chronic pain , mitral regurgitation, GERD, former smoker, hyperlipidemia, and anxiety. We were consulted to aid in her management. Ms. Lazo was making strides towards being able to be discharged but on the afternoon of 07/07/17, developed stroke symptoms with right-sided weakness and aphasia and was transferred to the ICU. Initial head CT revealed no acute abnormality. She was given TPA and her symptoms improved only to return within about an hour. Repeat CT head revealed right middle cerebral artery evolving infarct and small amount of subarachnoid hemorrhage thus limiting our ability to place her on Xarelto or other anticoagulants. Her condition was discussed with her family and they elected to make her a DNR. June 28, 2017 echocardiogram: EF 50%, moderate LVH, moderate MR, mild TR, mild ID. Carotid ultrasound: No evidence of significant stenosis bilaterally. JULY 09, 2017: Patient is followed for chronic, stable conditions to include CAD, COPD, PAF, moderate mitral regurgitation. She is also followed for acute conditions to include CVA, acute on chronic diastolic CHF. Ms. Fung is awake in bed. She follows commands appropriately though unable to speak or use her right upper or lower extremity. She remains in sinus rhythm with well controlled rate. Vital signs are stable. Continue treating with Amiodarone, Bisoprolol. Unable JULY 09, 2017REVIEW OF SYSTEMS: Unable to obtain due to communication barrier. Patient is aphasic from CVA. IMPRESSION/PLAN: - ACUTE CVA: Neurology is following. She has a small subarachnoid hemorrhage which limits our ability to further anticoagulate her. I have discontinued her Xarelto. She has a poor prognosis. Family has made her a DNR. Will continue to monitor. - CHF EXACERBATION: Acute on chronic CHF secondary to diastolic dysfunction, NYHA class II-III. CXR this morning pending. Continue with aspirin and diuresing. CHF appears to be stable at this point - SHORTNESS OF BREATH: Likely related to her CHF, now much improved. - BRADYCARDIA: Given her heart failure symptoms, MR, and PAF, she is best served with low dose beta leon (Zebeta) and Amiodarone. She has tolerated this well overnight. Will adjust medications accordingly during hospital stay. - CHRONIC KIDNEY DISEASE: Stage 4. Will need to avoid nephrotoxic agents. Will continue to monitor BMP. - CORONARY ARTERY DISEASE: Patient has a history of CAD S/P PCI. - H/O MYOCARDIAL INFARCTION: I've found no records on file detailing prior stent placement but she is reported to have 5 prior [place]'s and states her last [facility] was 3 years ago. - PAROXYSMAL ATRIAL FIBRILLATION: Currently in regular sinus rhythm. No significant bradycardia overnight. Not a candidate for anticoagulation or aspirin due to recent hemorrhage. She remains at high risk for future stroke - CHRONIC DIASTOLIC CHF: With recent EF 50%. BNP 1102 upon admission, has been improving. Creatinine 1.6 again this morning. - COPD: No active wheezing noted. Patient reports in the past when she has been treated with steroids, this has sent her in to CHF. - HYPOKALEMIA: Resolved on potassium replacement. Continue to follow BMP daily. Exam (Progress Note) - Constitutional Vitals: Period Temp Pulse Resp BP Sys/Dorado Pulse Ox Last 24 Hr 97.2 F-98.3 F 58-79 18-33 95-145/43-90 90-100 Exam: Exam: General appearance: In no acute distress. Follows commands as able. Head exam: Present: normal inspection, normocephalic, atraumatic. Absent: hematoma, laceration Eye exam: Present: EOMI. Absent: conjunctival injection, nystagmus, periorbital swelling, scleral icterus, laceration to eyelids, jaundice Pupils: Present: PERRL. Absent: constricted, dilated, fixed, irregular, unequal ENT exam: Present: normal exam, normal external ear exam, mucous membranes moist. Neck exam: Present: normal inspection, midline trachea. Absent: masses, lymphadenopathy, tenderness, thyromegaly, carotid bruit Respiratory exam: Present: upper airway congestion noted. coarse breath sounds. Absent: accessory muscle use, chest wall tenderness, wheezing. Cardiovascular exam: Present: regular rate and rhythm. Systolic murmur. Absent: gallop, JVD, rubs GI/Abdominal exam: Present: normal bowel sounds, soft. Absent: distended, firm , hernia, mass, tenderness. Extremities exam: Present:, No Clubbing, No Cyanosis, Upper Extr. Pulses 2+, Lower Extr. Pulses 2+, No significant BLE edema. Capillary refill less than 3 seconds. Musculoskeletal: Present: No Fluid Collection, No Pain, Normal Range of Motion Neurological exam: Present: awake, expressive aphasia. Right sided hemiparesis. Follows commands appropriately no unable to move her upper extremity or lower extremity on the right. Skin exam: Present: normal color, warm, dry, intact. Absent: cyanosis, diaphoretic, rash, urticaria Result/EKG - Labs CBC & BMP: 07/09/17 01:49 07/09/17 01:49 Lab Results: I have reviewed the past 24 hour labs Labs: Laboratory Results - last 24 hr 07/09/17 07/09/17 07/09/17 01:49 01:49 01:49 WBC 7.8 D RBC 3.91 Hgb 10.3 L Hct 33.3 L MCV 85.2 L MCH 26 L MCHC 30.9 L RDW 15.6 Plt Count 267 MPV 9.3 L Neut % (Auto) 86.8 H Lymph % (Auto) 6.6 L [place] % (Auto) 5.7 Eos % (Auto) 0.0 Baso % (Auto) 0.3 Neut # (Auto) 6.7 Lymph # (Auto) 0.5 L [place] # (Auto) 0.4 Eos # (Auto) 0.0 Baso # (Auto) 0.0 Immature Gran % 0.6 Nucleated RBC % 0.0 Immature Gran # 0.05 Nucleated RBCs # 0.00 Immature Plt Fraction 0.0 Sodium 144 Potassium 3.6 Chloride 106 Carbon Dioxide 29 Anion Gap 12.6 BUN 17 Creatinine 1.60 H GFR Calculation 29 BUN/Creatinine Ratio 10.00 Glucose 90 Calculated Osmolality 287.8 Calcium 8.7 Magnesium 2.5 H B-Natriuretic Peptide 850 H - Diagnostic Findings Procedure: Chest x-ray: pending - EKG EKG results: interpreted by me EKG shows: sinus rhythm <Junie Gann - Last Filed: 07/09/17 14:10> Cardiology - PN: Subj Interval history: I have personally interviewed and evaluated the patient, reviewed the chart and discussed medical decision-making with Practitioner Makeda. I have read this note and agree with her documentation here in. Exam (Progress Note) - Constitutional Vitals: Period Temp Pulse Resp BP Sys/Dorado Pulse Ox Last 24 Hr 97.5 F-98.4 F 56-701 16-31 105-145/43-82 90-100 Result/EKG - Labs CBC & BMP: 07/09/17 01:49 07/09/17 01:49 Labs: Laboratory Results - last 24 hr 07/09/17 07/09/17 07/09/17 01:49 01:49 01:49 WBC 7.8 D RBC 3.91 Hgb 10.3 L Hct 33.3 L MCV 85.2 L MCH 26 L MCHC 30.9 L RDW 15.6 Plt Count 267 MPV 9.3 L Neut % (Auto) 86.8 H Lymph % (Auto) 6.6 L [place] % (Auto) 5.7 Eos % (Auto) 0.0 Baso % (Auto) 0.3 Neut # (Auto) 6.7 Lymph # (Auto) 0.5 L [place] # (Auto) 0.4 Eos # (Auto) 0.0 Baso # (Auto) 0.0 Immature Gran % 0.6 Nucleated RBC % 0.0 Immature Gran # 0.05 Nucleated RBCs # 0.00 Immature Plt Fraction 0.0 Sodium 144 Potassium 3.6 Chloride 106 Carbon Dioxide 29 Anion Gap 12.6 BUN 17 Creatinine 1.60 H GFR Calculation 29 BUN/Creatinine Ratio 10.00 Glucose 90 Calculated Osmolality 287.8 Calcium 8.7 Magnesium 2.5 H B-Natriuretic Peptide 850 H
[2017-07-09] MEDS: LEVALBUTEROL 0.63 MG/3 ML NEB RESP TX SCH ×3 (07:14→23:10)
--- NOTE | 2017-07-09 08:50 | XRay Report ---
History: CHF. CVA Date: 07/09/2017 Study: Chest x-ray AP portable Comparison exam: 07/08/2017 There is continued cardiomegaly. The mediastinal contours are unchanged. The pulmonary vasculature is slightly prominent, the same or slightly increased. There is some mild pulmonary edema in the lower lungs, perhaps slightly increased. Partially calcified breast implants overlie the lower chest bilaterally. Osseous structures are unchanged. Osteopenia. Impression: Cardiomegaly and continued CHF with mild bibasilar pulmonary edema, mildly worsened PROCEDURE INTERPRETED AT [facility] DEPARTMENT OF RADIOLOGY Final Report Signed by: Dr. Kaitlyn Arellano
[2017-07-09] MEDS: AMIODARONE 200 MG TABLET PO SCH (09:31)
[2017-07-09] MEDS: POTASSIUM CHLORIDE 20 MEQ TABLET PO SCH ×2 (09:31→20:15)
[2017-07-09] MEDS: BUMETANIDE 1 MG TABLET PO SCH ×2 (09:31→20:10)
[2017-07-09] MEDS: FERROUS SULFATE 325 MG TABLET PO SCH (09:31)
[2017-07-09] MEDS: PANTOPRAZOLE 40 MG TABLET PO SCH (09:31)
[2017-07-09] MEDS: ROFLUMILAST 500 MCG TABLET PO SCH (09:31)
[2017-07-09] MEDS: MAGNESIUM CHLORIDE 64 MG TABLET PO SCH ×2 (09:32→20:15)
[2017-07-09] MEDS: BISOPROLOL 5 MG TABLET PO SCH ×2 (09:34→20:15)
--- NOTE | 2017-07-09 09:57 | Hospitalist Progress Note ---
Assessment and Plan (1) Stroke due to embolism of left middle cerebral artery Status: Acute Assessment and plan: The patient has received TPA. The patient is on no anticoagulant at present. The patient is stable and ready for transfer to the floor on telemetry monitoring. Current Visit: Yes (2) Diastolic CHF Status: Chronic Assessment and plan: The patient has acute on chronic diastolic congestive heart failure due to cor pulmonale on account of chronic lung disease. We continue treatment of the patient's lung disease and diuretic medication. I anticipate discharge home on oral Bumex tomorrow. Current Visit: No (3) CKD (chronic kidney disease) Status: Chronic Current Visit: No Qualifiers: Chronic kidney disease stage: stage 2 (mild) Qualified Code(s): N18.2 - Chronic kidney disease, stage 2 (mild) (4) Acute exacerbation of chronic obstructive airways disease Status: Acute Current Visit: Yes Hospitalist: Subjective Interval history: The patient has been stable overnight. The patient is awake and alert. She has continued expressive aphasia but appears to be able to receive information. The patient has right hemiparesis consistent with left middle cerebral artery stroke seen on CT scan. The patient is presently in sinus rhythm. Exam - Constitutional Vitals: Period Temp Pulse Resp BP Sys/Dorado Pulse Ox Last 24 Hr 97.4 F-98.3 F 60-79 18-33 95-145/43-84 90-100 Exam: Constitutional System: Mild distress. No tremulousness. Head: Normocephalic, atraumatic. Ears, Nose and Throat System: No evidence of Otitis or Mastoiditis. No epistaxis or discharge Eyes System: Pupils equal, round, and reactive. Extraocular muscles intact. Left facial weakness Neck: Supple, without adenopathy, No jugular venous distention. No thyromegaly , neck mass, or prior surgery apparent. Respiratory System: Chest mild to moderate upper airway congestion to auscultation. Cardiovascular System: Heart with irregular rate and rhythm. No murmur. GI System: Abdomen soft, nontender. Normo active bowel sounds present. Musculoskeletal System: limbs with right hemiparesis Neurological System: Expressive aphasia Results - Labs CBC & BMP: 07/09/17 01:49 07/09/17 01:49 Lab Results: I have reviewed the past 24 hour labs
--- NOTE | 2017-07-09 11:06 | Pulmonology Progress Note ---
Pulmonary - PN: Subj Interval history: Mrs. Lazo is an 81-year-old white female who we saw in initial pulmonary consultation on 07/06/2017. At that time, our impressions were: 1. Acute congestive heart failure 2. Arteriosclerotic heart disease. Stent. History of [place] 5 according to the patient. Past history of congestive heart failure 3. Chronic edema of the left ankle in the area of replete previous fracture. Look for deep venous thrombophlebitis 4. Previous colon cancer that required resection of the colon resulting in chronic diarrhea. 5. History of atrial fib 6. History of hyperlipidemia 7. Long-term amiodarone use. No evidence of pulmonary side effects 8. History of mild chronic renal failure 9. See past history 07/07/2017. The patient was seen today along with her . The patient's chest x-ray today shows small bilateral pleural effusions in the angles, but is markedly improved since previous films. The patient reports that her breathing is much improved as well. Echocardiogram done 07/06/[address] Gann showed an ejection fraction at 45%, the apex and inferior wall appeared akinetic , grade 3 diastolic dysfunction, left ventricular size was mildly increased, mildly increased left ventricular wall thickness, mildly enlarged right atrium size, the left atrium was mildly dilated, mild aortic sclerosis, mild tricuspid regurgitation, mild pulmonic regurgitation, and right ventricular systolic pressure was 32.09 mmHg. Medications have been reviewed. We made no changes today. Labs been reviewed. White count is 3900 with a normal differential; H&H 9.6/ 29.8; platelet count 229,000; creatinine improved to 1.60, BUN 9, sodium 138, potassium 3.0 (hypokalemia), magnesium 2.4; BNP has improved to 513 07/08/2017. This patient had an acute CVA in the distribution of the left middle cerebral artery. Initially she responded to TPA but this did not last. See neurology note. Chest x-ray shows small residual bilateral pleural effusions. Patient has resolving congestive heart failure. BNP remains elevated 584. Electrolytes are normal. Creatinine is 1.6 with a BUN of 12. Patient's on a regular sinus rhythm. 07/09/2017. This 81-year-old white female was hospitalized with acute congestive heart failure. She did well and was about ready for discharge and had a sudden stroke on the night of 07/07/2017 that left her with left facial paralysis and right body paralysis. She is alert and knows what is going on. Family has made her a DO NOT RESUSCITATE. This patient cannot swallow. She is presently n.p.o. and I have ordered TPN for her. Today's chest x-ray shows about 90% resolution of her congestive heart failure. All of the fluid in the costophrenic angles has resolved. She still has an elevated BNP at 850. Electrolytes are normal. Creatinine stable at 1.6 with a BUN of 17. White count 7800 with 87 segs. Platelets of 267,000. H&H 10.3/33.3. Will follow daily chest x-rays and be n.p.o. for the present time Exam (Progress Note) - Constitutional Vitals: Period Temp Pulse Resp BP Sys/Dorado Pulse Ox Last 24 Hr 97.4 F-99.6 F 57-73 16-20 111-139/52-64 94-99 Exam: Face. Face symmetric. No edema to lips or tongue. Neck. No masses. No meningismus. Lymphatics. No submandibular cervical supraclavicular adenopathy. Chest is wheeze free and fairly clear Heart with distant sounds but no gallop Abdomen is nontender and nondistended; bowel sounds are positive 4 Extremities with nothing to suggest acute deep venous thrombophlebitis; bilateral CHIKIS hose are in use Psychiatric. Awake. Believe the patient is aware of what is going on. Neurologic. Right face weakness. Left body paralysis. Plan: 07/07/2017. 1. Continue present treatment. 2. The patient states that she will most likely be discharged home today. If she is, she can keep her regularly scheduled follow-up appointment with Dr. Khan. 07/08/2017. 1. Continue on diuretics 2. Follow-up chest x-ray tomorrow also follow BNP and BMP 07/08/2017. 1. See today's note above 2. TPN 3. Daily BNP and chest x-ray 4. Alert no aware of what is going on 5. DO NOT RESUSCITATE has perfect Exam (Progress Note) - Constitutional Vitals: Period Temp Pulse Resp BP Sys/Dorado Pulse Ox Last 24 Hr 97.4 F-98.3 F 60-79 20-33 95-145/43-84 90-100 Results - Labs CBC & BMP: 07/09/17 01:49 07/09/17 01:49
[2017-07-09] MEDS: SODIUM CHLORIDE 0.9% 1,000 ML IV SCH (14:35)
--- NOTE | 2017-07-09 16:45 | XRay Report ---
Portable chest Indication: Tube placement Comparison: Not available Findings: Limited chest demonstrate satisfactory esophageal gastric tube placement with distal tip approximately 10 cm below the esophageal gastric junction. Impression: Satisfactory esophageal gastric tube placement PROCEDURE INTERPRETED AT [facility] DEPARTMENT OF RADIOLOGY Final Report Signed by: Diana Orr MD
[2017-07-09] MEDS: ACETAMINOPHEN 325 MG/10.15 ML UDCUP PO PRN (17:55)
[2017-07-09] MEDS: ALPRAZolam 0.5 MG TABLET PO SCH (20:10)
[2017-07-10 04:26] LABS: Basophils # 0.1 10*3/uL (0.0-0.2); Basophils % 0.5 % (0.0-0.8); Eosinophils % 0.2 % (0.00-10.9); Hematocrit 34.4 VOL% (35.7-47.0); Hemoglobin 10.4 GM/DL (12.0-16.0); Immature Granulocytes % 0.8 %; Immature Granulocytes Absolute 0.08 #; Lymphocytes # 0.5 10*3/uL (1.4-4.0); Lymphocytes % 5.6 % (21.3-54.2); Mean Corpuscular HGB Conc 30.2 GM/DL (32-36); Mean Corpuscular Hemoglobin 27 PG (27-34); Mean Corpuscular Volume 88.4 FL (87-102); Mean Platelet Volume 9.9 FL (9.6-12.0); Monocytes # 0.6 10*3/uL (0.11-0.8); Monocytes % 5.8 % (1.7-12.7); Neutrophils # 8.2 10*3/uL (1.4-7.4); Neutrophils % 87.1 % (38.7-73.9); Platelet Count 274 T/CUMM (130-400); Red Blood Count 3.89 MC/CUMM (3.8-5.5); White Blood Count 9.5 T/CUMM (4-12)
[2017-07-10 04:58] LABS: Calcium 8.6 MG/DL (8.5-10.1); Magnesium 2.6 MG/DL (1.8-2.4); Osmolality,Calculated 296.3 MOS/KG (273-304); Potassium 4.1 MMOL/L (3.5-5.1)
[2017-07-10] MEDS: LEVALBUTEROL 0.63 MG/3 ML NEB RESP TX SCH ×2 (07:21→14:30)
--- NOTE | 2017-07-10 08:08 | XRay Report ---
Portable chest Indication: Cough Comparison: Previous day at 3:41 PM Findings: Cardiomediastinal contours are stable with plaquing along the arch and no change in tube or line placement. Worsening interstitial and alveolar opacities throughout the left lung. No acute osseous abnormalities. Visualized upper abdomen demonstrates no acute pathology. Impression: Worsening interstitial and alveolar opacities throughout the left lung, findings may represent diffuse inflammatory/infectious process or asymmetric edema. PROCEDURE INTERPRETED AT [facility] DEPARTMENT OF RADIOLOGY Final Report Signed by: Diana Orr MD
[2017-07-10] MEDS: BUMETANIDE 1 MG TABLET PO SCH ×2 (09:30→20:11)
[2017-07-10] MEDS: ACETAMINOPHEN 325 MG TABLET PO PRN (09:30)
[2017-07-10] MEDS: BISOPROLOL 5 MG TABLET PO SCH ×2 (09:31→22:09)
[2017-07-10] MEDS: POTASSIUM CHLORIDE 20 MEQ TABLET PO SCH ×2 (09:31→22:08)
[2017-07-10] MEDS: AMIODARONE 200 MG TABLET PO SCH (09:32)
--- NOTE | 2017-07-10 10:24 | Cardiology Progress Note ---
Assessment and Plan (1) Acute CVA (cerebrovascular accident) Status: Acute Current Visit: Yes (2) CAD (coronary artery disease) Status: Chronic Current Visit: No (3) Congestive heart failure Status: Chronic Current Visit: Yes Qualifiers: Congestive heart failure type: diastolic Congestive heart failure chronicity: acute on chronic Qualified Code(s): I50.33 - Acute on chronic diastolic (congestive) heart failure (4) Paroxysmal atrial fibrillation Status: Chronic Current Visit: No Cardiology - PN: Subj Interval history: MATERIALS BRANCH CHIEF: DR. MCDANIELS PCP: DR. RAMIREZ SUMMARY: Ms. Lazo is a 81 y/o WF who is admitted July 05, 2017 with acute on chronic diastolic CHF and mitral regurgitation. History of known CAD S/P PCI , PAF (on Amiodarone), chronic diastolic heart failure, COPD, chronic renal insufficiency, chronic pain, mitral regurgitation, GERD, former smoker, hyperlipidemia, and anxiety. On the evening of anticipated discharge she developed an acute CVA with aphasia and left-sided hemiparesis. She was given TPA and her symptoms improved only to return within about an hour. Repeat CT head revealed right middle cerebral artery evolving infarct and small amount of subarachnoid hemorrhage thus limiting our ability to place her on Xarelto or other anticoagulants. Her condition was discussed with her family and they elected to make her a DNR. June 28, 2017 echocardiogram: EF 50%, moderate LVH, moderate MR, mild TR, mild TX. Carotid ultrasound: No evidence of significant stenosis bilaterally. JULY 10, 2017: Patient is followed for chronic, stable conditions to include CAD, COPD, PAF, moderate mitral regurgitation. She is also followed for acute conditions to include CVA, acute on chronic diastolic CHF. The patient has not had any significant neurologic recovery. She continues to be a phasic with right-sided hemiparesis. She appears tachypneic on exam today and has upper respiratory rhonchi, has developed fevers, and her A. fib has returned. Of note, she only recently had an NG tube placed to give her Tylenol , and she has not been receiving her amiodarone. She is not necessarily "Comfort Care only", although she is DNR. Her feels that she is "fading ". IMPRESSION/PLAN: - ACUTE CVA: Neurology is following. She has a small subarachnoid hemorrhage which limits our ability to further anticoagulate her. I have discontinued her Xarelto. She has a poor prognosis. Family has made her a DNR. Will continue to monitor. - CHF EXACERBATION: Acute on chronic CHF secondary to diastolic dysfunction, NYHA class II-III. CXR this morning pending. Continue with aspirin and diuresing. CHF appears to be stable at this point - SHORTNESS OF BREATH: Likely related to her CHF, now much improved. I believe she is also developed a pneumonia, likely aspiration. Will defer to pulmonology for further evaluation and treatment. - BRADYCARDIA: Given her heart failure symptoms, MR, and PAF, she is best served with low dose beta leon (Zebeta) and Amiodarone. Now that she has an NG tube these medicines can be resumed. - CHRONIC KIDNEY DISEASE: Stage 4. Will need to avoid nephrotoxic agents. Will continue to monitor BMP. - CORONARY ARTERY DISEASE: Patient has a history of CAD S/P PCI. - H/O MYOCARDIAL INFARCTION: I've found no records on file detailing prior stent placement but she is reported to have 5 prior AZ's and states her last [facility] was 3 years ago. - PAROXYSMAL ATRIAL FIBRILLATION: Her amiodarone will be resumed now that she has an NG tube in place. Not anticoagulated due to subarachnoid hemorrhage after TPA. - CHRONIC DIASTOLIC CHF: With recent EF 50%. BNP 1102 upon admission, has been improving. Creatinine 1.6 again this morning. - COPD: No active wheezing noted. Patient reports in the past when she has been treated with steroids, this has sent her in to CHF. - HYPOKALEMIA: Resolved on potassium replacement. Continue to follow BMP daily. I discussed her condition at length with the patient's yesterday and again today. We discussed the distinction between DO NOT RESUSCITATE and comfort care only. He does not believe his will survive the day. He will consider these options. Exam (Progress Note) - Constitutional Vitals: Period Temp Pulse Resp BP Sys/Dorado Pulse Ox Last 24 Hr 97.9 F-101 F 56-701 16-28 108-142/52-82 62-100 Exam: Exam: General appearance: Mildly tachypneic, ill-appearing. Head exam: Present: normal inspection, normocephalic, atraumatic. Absent: hematoma, laceration Eye exam: Absent: conjunctival injection, periorbital swelling, scleral icterus , laceration to eyelids, jaundice Pupils: Present: PERRL. Absent: constricted, dilated, fixed, irregular, unequal ENT exam: Present: normal exam, normal external ear exam, mucous membranes moist. Neck exam: Present: normal inspection, midline trachea. Absent: masses, lymphadenopathy, tenderness, thyromegaly, carotid bruit Respiratory exam: Present: upper airway rhonchi and coarse breath sounds. Absent: accessory muscle use, chest wall tenderness, wheezing. Cardiovascular exam: Present: Irregularly irregular rate and rhythm. 3/6 holosystolic murmur. Absent: gallop, JVD, rubs GI/Abdominal exam: Present: normal bowel sounds, soft. Absent: distended, firm , hernia, mass, tenderness. Extremities exam: Present:, No Clubbing, No Cyanosis, Upper Extr. Pulses 2+, Lower Extr. Pulses 2+, No significant BLE edema. Capillary refill less than 3 seconds. Musculoskeletal: Present: No Fluid Collection, cannot assess range of Motion Neurological exam: Present: awake, expressive aphasia. Right sided hemiparesis. Follows commands appropriately no unable to move her upper extremity or lower extremity on the right. She has more of a global weakness today. Skin exam: Present: normal color, warm, dry, intact. Absent: cyanosis, diaphoretic, rash, urticaria Result/EKG - Labs CBC & BMP: 07/10/17 03:39 07/10/17 03:39 Lab Results: I have reviewed the past 24 hour labs Labs: Laboratory Results - last 24 hr 07/10/17 07/10/17 07/10/17 03:39 03:39 03:39 WBC 9.5 RBC 3.89 Hgb 10.4 L Hct 34.4 L MCV 88.4 MCH 27 MCHC 30.2 L RDW 16.0 Plt Count 274 MPV 9.9 Neut % (Auto) 87.1 H Lymph % (Auto) 5.6 L [place] % (Auto) 5.8 Eos % (Auto) 0.2 Baso % (Auto) 0.5 Neut # (Auto) 8.2 H Lymph # (Auto) 0.5 L [place] # (Auto) 0.6 Eos # (Auto) 0.0 Baso # (Auto) 0.1 Immature Gran % 0.8 Nucleated RBC % 0.0 Immature Gran # 0.08 Nucleated RBCs # 0.00 Immature Plt Fraction 0.0 Sodium 148 H Potassium 4.1 Chloride 112 H Carbon Dioxide 26 Anion Gap 14.1 BUN 21 H Creatinine 1.30 H GFR Calculation 38 BUN/Creatinine Ratio 16.00 Glucose 101 Calculated Osmolality 296.3 Calcium 8.6 Magnesium 2.6 H B-Natriuretic Peptide 529 H - Diagnostic Findings Procedure: Chest x-ray: report reviewed by me - EKG EKG results: interpreted by me EKG shows: atrial fibrillation Specialty Discharge - Follow Up or Referrals
[2017-07-10] MEDS: PANTOPRAZOLE 40 MG TABLET PO SCH (11:54)
[2017-07-10] MEDS: MAGNESIUM CHLORIDE 64 MG TABLET PO SCH ×2 (11:55→22:08)
--- NOTE | 2017-07-10 12:27 | Hospitalist Progress Note ---
Assessment and Plan (1) Stroke due to embolism of left middle cerebral artery Status: Acute Assessment and plan: The patient has received TPA. The patient is on no anticoagulant at present. The patient's upper airway congestion is worse than it was yesterday. Current Visit: Yes (2) Diastolic CHF Status: Chronic Assessment and plan: The patient has acute on chronic diastolic congestive heart failure due to cor pulmonale on account of chronic lung disease. We continue treatment of the patient's lung disease and diuretic medication. Current Visit: No (3) CKD (chronic kidney disease) Status: Chronic Current Visit: No Qualifiers: Chronic kidney disease stage: stage 2 (mild) Qualified Code(s): N18.2 - Chronic kidney disease, stage 2 (mild) (4) Acute exacerbation of chronic obstructive airways disease Status: Acute Current Visit: Yes Hospitalist: Subjective Interval history: Mrs. Fung has upper airway congestion consistent with stroke and inability to guard airway. I reviewed progress to date with the patient's and son. The patient is having some fever likely due to aspiration. Exam - Constitutional Vitals: Period Temp Pulse Resp BP Sys/Dorado Pulse Ox Last 24 Hr 97.9 F-101 F 56-122 16-28 115-142/55-75 62-100 Exam: Constitutional System: Mild to moderate distress on account of upper airway congestion. No tremulousness. Head: Normocephalic, atraumatic. Ears, Nose and Throat System: No evidence of Otitis or Mastoiditis. No epistaxis or discharge Eyes System: Pupils equal, round, and reactive. Extraocular muscles intact. Left facial weakness Neck: Supple, without adenopathy, No jugular venous distention. No thyromegaly , neck mass, or prior surgery apparent. Respiratory System: Chest mild to moderate upper airway congestion to auscultation. Cardiovascular System: Heart with irregular rate and rhythm. No murmur. GI System: Abdomen soft, nontender. Normo active bowel sounds present. Musculoskeletal System: limbs with right hemiparesis Neurological System: Expressive aphasia Results - Labs CBC & BMP: 07/10/17 03:39 07/10/17 03:39 Lab Results: I have reviewed the past 24 hour labs Specialty Discharge - Follow Up or Referrals
--- NOTE | 2017-07-10 14:33 | Pulmonology Progress Note ---
Pulmonary - PN: Subj Interval history: Patient is an 81-year-old white lady originally came in with congestive heart failure and was actually doing better when she had a significant CVA. She was having a aphasia and right-sided weakness and did get TPA. She has tolerated this fairly well but still is quite debilitated. She has not been able to swallow and is getting some IV fluids. She is a DNR now. She is lying in bed and breathing comfortably. Exam (Progress Note) - Constitutional Vitals: Period Temp Pulse Resp BP Sys/Dorado Pulse Ox Last 24 Hr 97.9 F-101 F 60-122 17-28 115-142/63-75 62-99 General appearance: no acute distress (She seems to be comfortable in bed.), under weight - Head Head exam: Present: normal inspection - Eye Eye exam: Present: EOMI. Absent: scleral icterus Pupils: Present: ANDREW - ENT ENT exam: Present: other (She has good facial symmetry.) - Neck Neck exam: Absent: lymphadenopathy, thyromegaly - Respiratory Respiratory exam: Present: decreased breath sounds. Absent: accessory muscle use, rhonchi, wheezes - Cardiovascular Cardiovascular exam: Present: irregular rhythm, systolic murmur (She has a soft murmur). Absent: gallop, tachycardia - GI/Abdominal GI/Abdominal exam: Present: soft. Absent: distended, organomegaly, tenderness - Extremities Exam Extremities exam: Absent: calf tenderness, edema - Neurological Exam Neurological exam: Present: alert, other (She has an expressive aphasia and right-sided weakness.) - Psychiatric Psychiatric exam: Absent: anxious - Skin Skin exam: Present: warm, dry Results - Labs CBC & BMP: 07/10/17 03:39 07/10/17 03:39 Assessment and Plan (1) Chronic renal insufficiency, stage II (mild) Status: Chronic Assessment and plan: The patient's creatinine is 1.3. Current Visit: No (2) Acute exacerbation of CHF (congestive heart failure) Status: Acute Assessment and plan: The patient was treated for heart failure and is better. Her breathing is stable. Current Visit: Yes Qualifiers: Congestive heart failure type: diastolic Qualified Code(s): I50.33 - Acute on chronic diastolic (congestive) heart failure (3) Paroxysmal atrial fibrillation Status: Chronic Assessment and plan: The patient has controlled atrial fibrillation. Current Visit: No (4) COPD (chronic obstructive pulmonary disease) Status: Chronic Assessment and plan: The patient's breathing is comfortable at present. She will continue with bronchodilator therapy. Current Visit: Yes (5) Acute CVA (cerebrovascular accident) Status: Acute Assessment and plan: The patient received TPA for a CVA and still has an aphasia and weakness. Current Visit: Yes Specialty Discharge - Follow Up or Referrals
[2017-07-10] MEDS: FERROUS SULFATE 325 MG TABLET PO SCH (16:34)
[2017-07-10] MEDS: SODIUM CHLORIDE 0.9% 1,000 ML IV SCH (17:30)
[2017-07-10] MEDS: ROFLUMILAST 500 MCG TABLET PO SCH (17:31)
[2017-07-10] MEDS: ALPRAZolam 0.5 MG TABLET PO SCH (20:10)
[2017-07-10] MEDS ORDERED: FUROSEMIDE 100 MG/10 ML VIAL IV STA (23:10)
[2017-07-10] MEDS ORDERED: FUROSEMIDE 100 MG/10 ML VIAL ONE (23:14)
[2017-07-11] MEDS: LEVALBUTEROL 0.63 MG/3 ML NEB RESP TX SCH ×4 (00:33→22:48)
[2017-07-11] MEDS: SODIUM CHLORIDE 0.9% 1,000 ML IV SCH (04:37)
[2017-07-11 05:27] LABS: Basophils % 0.2 % (0.0-0.8); Hemoglobin 11.9 GM/DL (12.0-16.0); Immature Granulocytes % 0.7 %; Immature Granulocytes Absolute 0.09 #; Lymphocytes # 0.4 10*3/uL (1.4-4.0); Lymphocytes % 2.8 % (21.3-54.2); Mean Corpuscular HGB Conc 31.3 GM/DL (32-36); Mean Corpuscular Hemoglobin 27 PG (27-34); Mean Corpuscular Volume 85.6 FL (87-102); Mean Platelet Volume 9.8 FL (9.6-12.0); Monocytes # 0.7 10*3/uL (0.11-0.8); Monocytes % 4.9 % (1.7-12.7); Neutrophils # 12.4 10*3/uL (1.4-7.4); Neutrophils % 91.4 % (38.7-73.9); Platelet Count 322 T/CUMM (130-400); Red Blood Count 4.44 MC/CUMM (3.8-5.5); Red Cell Distribution Width 16.3 % (9.3-17.3); White Blood Count 13.5 T/CUMM (4-12)
[2017-07-11 05:54] LABS: Magnesium 2.5 MG/DL (1.8-2.4); Osmolality,Calculated 310.4 MOS/KG (273-304); Potassium 3.1 MMOL/L (3.5-5.1)
[2017-07-11 06:18] LABS: Hypochromasia 1+; Lymphocytes 4 % (20-55); Microcytosis 1+; Platelet Estimate Normal; Segmented Neutrophils 94 % (50-85); Total Cells Counted 100
[2017-07-11] MEDS ORDERED: LORazepam 1 MG TABLET PO PRN (07:58)
[2017-07-11] MEDS ORDERED: MORPHINE 2 MG/1 ML SYRINGE IV PRN (08:24)
[2017-07-11] MEDS: MORPHINE 2 MG/1 ML SYRINGE IV PRN ×2 (08:30→15:14)
--- NOTE | 2017-07-11 08:39 | XRay Report ---
Portable chest Indication: Shortness of breath, cough Comparison: Previous day at 0542 hours Findings: Cardiomediastinal contours are stable with underlying cardiomegaly and atheromatous changes along the arch. No change in esophageal gastric tube placement. Partial clearing of the interstitial and diffuse groundglass opacities throughout the left lung. Bibasilar atelectasis, discoid type in the left lung base with small left pleural effusion. No acute osseous abnormalities. Visualized upper abdomen demonstrates no acute pathology. Impression: Partial clearing of the interstitial and alveolar opacities throughout the left lung with likely no change in the small left pleural effusion PROCEDURE INTERPRETED AT [facility] DEPARTMENT OF RADIOLOGY Final Report Signed by: Diana Orr MD
[2017-07-11] MEDS ORDERED: SCOPOLAMINE 1.5 MG PATCH TRANSDERM SCH (09:00)
[2017-07-11] MEDS: ROFLUMILAST 500 MCG TABLET PO SCH (09:50)
[2017-07-11] MEDS: POTASSIUM CHLORIDE 20 MEQ/15 ML UDCUP PER TUBE SCH ×4 (09:50→21:16)
[2017-07-11] MEDS: BISOPROLOL 5 MG TABLET PO SCH ×2 (09:51→21:14)
[2017-07-11] MEDS: BUMETANIDE 1 MG TABLET PO SCH ×2 (09:51→21:14)
[2017-07-11] MEDS: FERROUS SULFATE 325 MG TABLET PO SCH (09:52)
[2017-07-11] MEDS: AMIODARONE 200 MG TABLET PO SCH (09:52)
[2017-07-11] MEDS: PANTOPRAZOLE 40 MG TABLET PO SCH (09:56)
[2017-07-11] MEDS: POTASSIUM CHLORIDE 20 MEQ TABLET PO SCH ×2 (09:56→21:35)
--- NOTE | 2017-07-11 10:06 | Pulmonology Progress Note ---
Pulmonary - PN: Subj Interval history: Patient is an 81-year-old white lady originally came in with congestive heart failure and was actually doing better when she had a significant CVA. She was having a aphasia and right-sided weakness and did get TPA. She has tolerated this fairly well but still is quite debilitated. She still has an expressive aphasia and right hemiparesis. She is not really able to communicate very well. She had a very restless night. She is having trouble clearing secretions. She has been getting tube feedings. Overall she looks miserable. Exam (Progress Note) - Constitutional Vitals: Period Temp Pulse Resp BP Sys/Dorado Pulse Ox Last 24 Hr 97.9 F-99.9 F 100-135 20-32 109-128/59-69 91-98 Exam: General appearance: she is not really responding that much and she is quite restless at present. She has been requiring suctioning. She has an extremely weak cough. She is quite debilitated. - Head Head exam: Present: normal inspection - Eye Eye exam: Present: EOMI. Absent: scleral icterus Pupils: Present: ANDREW - ENT ENT exam: Present: other (She has good facial symmetry. She has a feeding tube in place.) - Neck Neck exam: Absent: lymphadenopathy, thyromegaly - Respiratory Respiratory exam: Present: She has fair breath sounds bilaterally with bilateral rhonchi. She is not really wheezing that much. - Cardiovascular Cardiovascular exam: Present: irregular rhythm, systolic murmur (She has a soft murmur). Absent: gallop, tachycardia - GI/Abdominal GI/Abdominal exam: Present: soft. Absent: distended, organomegaly, tenderness - Extremities Exam Extremities exam: Absent: calf tenderness, edema - Neurological Exam Neurological exam: Present: alert, other (She has an expressive aphasia and right-sided weakness. She will move her left arm and leg.) - Psychiatric Psychiatric exam: She is more anxious today. - Skin Skin exam: Present: warm, dry Results - Labs CBC & BMP: 07/11/17 04:35 07/11/17 04:35 - Diagnostic Findings Procedure: Chest x-ray: image reviewed by me, report reviewed by me (Chest x- ray shows cardiomegaly but her left lung is actually more expanded. She does not have overt heart failure.) Assessment and Plan (1) Chronic renal insufficiency, stage II (mild) Status: Chronic Assessment and plan: The patient's creatinine is 1.4. Current Visit: No (2) Acute exacerbation of CHF (congestive heart failure) Status: Acute Assessment and plan: The patient was treated for heart failure and is better. Her chest x-ray looks okay today. She does have trouble clearing secretions. Current Visit: Yes Qualifiers: Congestive heart failure type: diastolic Qualified Code(s): I50.33 - Acute on chronic diastolic (congestive) heart failure (3) Paroxysmal atrial fibrillation Status: Chronic Assessment and plan: The patient has controlled atrial fibrillation. Current Visit: No (4) COPD (chronic obstructive pulmonary disease) Status: Chronic Assessment and plan: The patient's breathing is comfortable at present. She will continue with bronchodilator therapy. Current Visit: Yes (5) Acute CVA (cerebrovascular accident) Status: Acute Assessment and plan: The patient received TPA for a CVA and still has an aphasia and weakness. She is extremely debilitated after the stroke. Will try to keep her comfortable with low-dose morphine. Current Visit: Yes Specialty Discharge - Follow Up or Referrals
[2017-07-11] MEDS ORDERED: ARFORMOTEROL 15 MCG/2 ML NEB RESP TX SCH (10:30)
--- NOTE | 2017-07-11 10:53 | Hospitalist Progress Note ---
Assessment and Plan (1) Stroke due to embolism of left middle cerebral artery Status: Acute Assessment and plan: The patient has received TPA. The patient is on no anticoagulant at present. The patient's upper airway congestion continues and is moderate. Going to add scopolamine patch to try to dry the secretions and morphine to help with air hunger. Current Visit: Yes (2) Diastolic CHF Status: Chronic Assessment and plan: The patient has acute on chronic diastolic congestive heart failure due to cor pulmonale on account of chronic lung disease. We continue treatment of the patient's lung disease and diuretic medication. Current Visit: No (3) CKD (chronic kidney disease) Status: Chronic Current Visit: No Qualifiers: Chronic kidney disease stage: stage 2 (mild) Qualified Code(s): N18.2 - Chronic kidney disease, stage 2 (mild) (4) Acute exacerbation of chronic obstructive airways disease Status: Acute Current Visit: Yes Hospitalist: Subjective Interval history: This patient is recovering from left middle cerebral artery embolic stroke. She got TPA with an hour of symptom onset. The patient's stroke has completed and she remains a phasic with right hemiparesis. The patient has loss of upper airway secretions and became agitated last night on account of respiratory distress. The patient has been sedated with Ativan and morphine and appears more comfortable this morning. I discussed plan of care and progress to date with her at the bedside. Exam - Constitutional Vitals: Period Temp Pulse Resp BP Sys/Dorado Pulse Ox Last 24 Hr 97.9 F-99.7 F 100-135 20-32 109-128/59-69 91-98 Exam: Constitutional System: Mild to moderate distress on account of upper airway congestion. No tremulousness. Head: Normocephalic, atraumatic. Ears, Nose and Throat System: No evidence of Otitis or Mastoiditis. No epistaxis or discharge Eyes System: Pupils equal, round, and reactive. Extraocular muscles intact. Left facial weakness Neck: Supple, without adenopathy, No jugular venous distention. No thyromegaly , neck mass, or prior surgery apparent. Respiratory System: Chest mild to moderate upper airway congestion to auscultation. Cardiovascular System: Heart with irregular rate and rhythm. No murmur. GI System: Abdomen soft, nontender. Normo active bowel sounds present. Musculoskeletal System: limbs with right hemiparesis Neurological System: Expressive aphasia Results - Labs CBC & BMP: 07/11/17 04:35 07/11/17 04:35 Lab Results: I have reviewed the past 24 hour labs Specialty Discharge - Follow Up or Referrals
[2017-07-11] MEDS: methylPREDNISolone SOD SUC 40 MG/1 ML VIAL IV SCH ×2 (14:58→23:06)
[2017-07-11] MEDS: MAGNESIUM CHLORIDE 64 MG TABLET PO SCH ×2 (15:14→21:16)
[2017-07-11] MEDS: ACETAMINOPHEN 325 MG/10.15 ML UDCUP PO PRN (15:19)
--- NOTE | 2017-07-11 16:36 | Cardiology Progress Note ---
Assessment and Plan (1) Acute CVA (cerebrovascular accident) Status: Acute Current Visit: Yes (2) CAD (coronary artery disease) Status: Chronic Current Visit: No (3) Congestive heart failure Status: Chronic Current Visit: Yes Qualifiers: Congestive heart failure type: diastolic Congestive heart failure chronicity: acute on chronic Qualified Code(s): I50.33 - Acute on chronic diastolic (congestive) heart failure (4) Paroxysmal atrial fibrillation Status: Chronic Current Visit: No Cardiology - PN: Subj Interval history: MANAGER FIELD SERVICES: DR. MCDANIELS PCP: DR. RAMIREZ SUMMARY: Ms. Lazo is a 81 y/o WF who is admitted July 05, 2017 with acute on chronic diastolic CHF and mitral regurgitation. History of known CAD S/P PCI , PAF (on Amiodarone), chronic diastolic heart failure, COPD, chronic renal insufficiency, chronic pain, mitral regurgitation, GERD, former smoker, hyperlipidemia, and anxiety. On the evening of anticipated discharge she developed an acute CVA with aphasia and left-sided hemiparesis. She was given TPA and her symptoms improved only to return within about an hour. Repeat CT head revealed right middle cerebral artery evolving infarct and small amount of subarachnoid hemorrhage thus limiting our ability to place her on Xarelto or other anticoagulants. Her condition was discussed with her family and they elected to make her a DNR. June 28, 2017 echocardiogram: EF 50%, moderate LVH, moderate MR, mild TR, mild AR. Carotid ultrasound: No evidence of significant stenosis bilaterally. JULY 11, 2017: Patient is followed for chronic, stable conditions to include CAD, COPD, PAF, moderate mitral regurgitation. She is also followed for acute conditions to include CVA, acute on chronic diastolic CHF. She continues to be a phasic with right-sided hemiparesis. She appears tachypneic on exam and has upper respiratory rhonchi, has developed fevers, and her A. fib has returned intermittently. Scopolamine patch has been applied to try to decrease secretions. 2 of her sons and her are at the bedside and we discussed her condition. She continues to have some fevers. IMPRESSION/PLAN: - ACUTE CVA: Neurology is following. She has a small subarachnoid hemorrhage which limits our ability to further anticoagulate her. I have discontinued her Xarelto. She has a poor prognosis. Family has made her a DNR. Will continue to monitor. - CHF EXACERBATION: Acute on chronic CHF secondary to diastolic dysfunction, NYHA class II-III. CXR this morning pending. Continue with aspirin and diuresing. CHF appears to be stable at this point - SHORTNESS OF BREATH: Likely related to her CHF, and superimposed aspiration pneumonia. Will defer to pulmonology for further evaluation and treatment. - BRADYCARDIA: Given her heart failure symptoms, MR, and PAF, she is best served with low dose beta leon (Zebeta) and Amiodarone. Now that she has an NG tube these medicines can be resumed. - CHRONIC KIDNEY DISEASE: Stage 4. Will need to avoid nephrotoxic agents. Will continue to monitor BMP. - CORONARY ARTERY DISEASE: Patient has a history of CAD S/P PCI. - H/O MYOCARDIAL INFARCTION: I've found no records on file detailing prior stent placement but she is reported to have 5 prior OK's and states her last [facility] was 3 years ago. - PAROXYSMAL ATRIAL FIBRILLATION: Her amiodarone will be resumed now that she has an NG tube in place. Not anticoagulated due to subarachnoid hemorrhage after TPA. - CHRONIC DIASTOLIC CHF: With recent EF 50%. BNP 1102 upon admission, has been improving. Creatinine 1.6 again this morning. - COPD: No active wheezing noted. Patient reports in the past when she has been treated with steroids, this has sent her in to CHF. - HYPOKALEMIA: Resolved on potassium replacement. Continue to follow BMP daily. I discussed her condition at length with the patient's today. We discussed the distinction between DO NOT RESUSCITATE and comfort care only. He will consider these options. Exam (Progress Note) - Constitutional Vitals: Period Temp Pulse Resp BP Sys/Dorado Pulse Ox Last 24 Hr 98.2 F-101 F 100-143 20-26 104-136/61-89 92-96 Exam: Exam: General appearance: Mildly tachypneic, ill-appearing. Head exam: Present: normal inspection, normocephalic, atraumatic. Absent: hematoma, laceration Eye exam: Absent: conjunctival injection, periorbital swelling, scleral icterus , laceration to eyelids, jaundice Pupils: Present: PERRL. Absent: constricted, dilated, fixed, irregular, unequal ENT exam: Present: normal exam, normal external ear exam, mucous membranes moist. Neck exam: Present: normal inspection, midline trachea. Absent: masses, lymphadenopathy, tenderness, thyromegaly, carotid bruit Respiratory exam: Present: upper airway rhonchi and coarse breath sounds. Absent: accessory muscle use, chest wall tenderness, wheezing. Cardiovascular exam: Present: Irregularly irregular rate and rhythm. 3/6 holosystolic murmur. Absent: gallop, JVD, rubs GI/Abdominal exam: Present: normal bowel sounds, soft. Absent: distended, firm , hernia, mass, tenderness. Extremities exam: Present:, No Clubbing, No Cyanosis, Upper Extr. Pulses 2+, Lower Extr. Pulses 2+, No significant BLE edema. Capillary refill less than 3 seconds. Musculoskeletal: Present: No Fluid Collection, cannot assess range of Motion Neurological exam: Present: awake, expressive aphasia. Right sided hemiparesis. Follows commands appropriately no unable to move her upper extremity or lower extremity on the right. She has more of a global weakness today. Skin exam: Present: normal color, warm, dry, intact. Absent: cyanosis, diaphoretic, rash, urticaria Result/EKG - Labs CBC & BMP: 07/11/17 04:35 07/11/17 04:35 Lab Results: I have reviewed the past 24 hour labs Labs: Laboratory Results - last 24 hr 07/11/17 07/11/17 07/11/17 04:35 04:35 04:35 WBC 13.5 H D RBC 4.44 Hgb 11.9 L Hct 38.0 MCV 85.6 L MCH 27 MCHC 31.3 L RDW 16.3 Plt Count 322 MPV 9.8 Neut % (Auto) 91.4 H Lymph % (Auto) 2.8 L Isabela % (Auto) 4.9 Eos % (Auto) 0.0 Baso % (Auto) 0.2 Neut # (Auto) 12.4 H Lymph # (Auto) 0.4 L Isabela # (Auto) 0.7 Eos # (Auto) 0.0 Baso # (Auto) 0.0 Total Counted 100 Immature Gran % 0.7 Nucleated RBC % 0.0 Immature Gran # 0.09 Segmented Neutrophils 94 H Lymphocytes 4 L Monocytes 2 Nucleated RBCs # 0.00 Platelet Estimate Normal Immature Plt Fraction 0.0 Hypochromasia 1+ Microcytosis 1+ Sodium 154 H Potassium 3.1 L Chloride 115 H Carbon Dioxide 27 Anion Gap 15.1 H BUN 26 H Creatinine 1.40 H GFR Calculation 34 BUN/Creatinine Ratio 18.00 Glucose 120 H Calculated Osmolality 310.4 H Calcium 9.0 Magnesium 2.5 H B-Natriuretic Peptide 1091 H Specialty Discharge - Follow Up or Referrals
[2017-07-11] MEDS: ARFORMOTEROL 15 MCG/2 ML NEB RESP TX SCH (19:27)
[2017-07-11] MEDS: ALPRAZolam 0.5 MG TABLET PO SCH (21:12)
[2017-07-11] MEDS: ACETAMINOPHEN 325 MG TABLET PO PRN (21:13)
[2017-07-12] MEDS: MORPHINE 2 MG/1 ML SYRINGE IV PRN ×3 (00:04→21:26)
[2017-07-12] MEDS: SODIUM CHLORIDE 0.9% 1,000 ML IV SCH (04:39)
[2017-07-12 06:14] LABS: Basophils % 0.1 % (0.0-0.8); Hematocrit 36.9 VOL% (35.7-47.0); Hemoglobin 11.3 GM/DL (12.0-16.0); Immature Granulocytes % 0.9 %; Immature Granulocytes Absolute 0.09 #; Lymphocytes # 0.3 10*3/uL (1.4-4.0); Lymphocytes % 3.3 % (21.3-54.2); Mean Corpuscular HGB Conc 30.6 GM/DL (32-36); Mean Corpuscular Hemoglobin 27 PG (27-34); Mean Corpuscular Volume 88.1 FL (87-102); Mean Platelet Volume 10.1 FL (9.6-12.0); Monocytes # 0.2 10*3/uL (0.11-0.8); Monocytes % 2.4 % (1.7-12.7); Neutrophils % 93.3 % (38.7-73.9); Platelet Count 278 T/CUMM (130-400); Red Blood Count 4.19 MC/CUMM (3.8-5.5); Red Cell Distribution Width 16.8 % (9.3-17.3); White Blood Count 9.6 T/CUMM (4-12)
[2017-07-12 06:44] LABS: Calcium 9.1 MG/DL (8.5-10.1); Magnesium 2.7 MG/DL (1.8-2.4); Potassium 4.5 MMOL/L (3.5-5.1)
[2017-07-12 06:46] LABS: Lymphocytes 4 % (20-55); Platelet Estimate Adequate; Segmented Neutrophils 96 % (50-85); Total Cells Counted 100
[2017-07-12 06:47] LABS: Giant Platelets Few; Hypochromasia 1+; Microcytosis Slight; Ovalocytes Slight
[2017-07-12] MEDS: LEVALBUTEROL 0.63 MG/3 ML NEB RESP TX SCH ×2 (07:51→07:55)
[2017-07-12] MEDS: ARFORMOTEROL 15 MCG/2 ML NEB RESP TX SCH ×2 (07:51→07:56)
--- NOTE | 2017-07-12 08:08 | XRay Report ---
History is coughing Comparison 07/11/2017 The heart is enlarged. There remains linear opacities seen and possible small effusion at the left lung base. Grossly unchanged. NG tube traverses the chest Impression: No gross interval change including cardiomegaly and left basilar scarring/atelectasis PROCEDURE INTERPRETED AT [facility] DEPARTMENT OF RADIOLOGY Final Report Signed by: Dr. Janay Berry
[2017-07-12] MEDS: FERROUS SULFATE 325 MG TABLET PO SCH (08:39)
[2017-07-12] MEDS: AMIODARONE 200 MG TABLET PO SCH (08:39)
[2017-07-12] MEDS: BUMETANIDE 1 MG TABLET PO SCH (08:39)
[2017-07-12] MEDS: ROFLUMILAST 500 MCG TABLET PO SCH (08:39)
[2017-07-12] MEDS: PANTOPRAZOLE 40 MG TABLET PO SCH (08:40)
[2017-07-12] MEDS: POTASSIUM CHLORIDE 20 MEQ TABLET PO SCH (08:40)
[2017-07-12] MEDS: MAGNESIUM CHLORIDE 64 MG TABLET PO SCH (08:40)
[2017-07-12] MEDS: BISOPROLOL 5 MG TABLET PO SCH (08:40)
--- NOTE | 2017-07-12 09:27 | Neurology Progress Note ---
Neurology - PN : Subjective Interval history: Patient's eyes are open but she is not following any commands. No speech. Not moving either extremities on command. Exam (Progress Note) - Constitutional Vitals: Period Temp Pulse Resp BP Sys/Dorado Pulse Ox Last 24 Hr 97.6 F-101 F 118-143 20-30 104-128/58-75 92-96 Exam: GENERAL: Patient is in no acute distress. NECK: Neck is supple. There is no JVD. No carotid bruits present. No thyroid masses. CVS: First and second heart sounds are normal. There is no S3 present. Regular rate and rhythm. RESPIRATORY: Lungs are clear to auscultation without any rales or rhonchi. ABDOMEN: Soft and non-tender. Bowel sounds are present. There is no hepatosplenomegaly. EXT: There is no palpable edema. Peripheral pulses are present. Skin: No rashes Central Nervous system: General: Alert, awake Speech: Significant expressive and some element of receptive aphasia Comprehension: Impaired Facial expressions: Normal Cranial Nerves: CN1/Olfactory: Normal CN II/ Optic: Normal, Visual Moseley right homonymous Jaquelin CN III, and : ANDREW & EOMI CN V: Normal & intact CN VII: Right central facial weak CNVIII: Normal CN XI/X/XI/XII: Intact and Normal Motor: Bulk and Tone is normal. Strength in the right 1-2/5 Strength in the left to assist Sensory: Cannot be assessed Reflexes: 1+ and symmetrical Cerebellar function: Cannot be assessed Toes: Equivocal Gait: Cannot be assessed Results - Labs CBC & BMP: 07/12/17 06:00 07/12/17 06:00 Assessment and Plan (1) Acute CVA (cerebrovascular accident) Status: Acute Assessment and plan: Patient never got started on Xarelto or any other blood thinners We will repeat CAT scan of the head without contrast We will make further decision after the CAT scan Prognosis is guarded Discussed with her in detail Current Visit: Yes Specialty Discharge - Follow Up or Referrals
[2017-07-12] MEDS ORDERED: DEXTROSE 5% 1,000 ML IV SCH (09:30)
--- NOTE | 2017-07-12 09:35 | Pulmonology Progress Note ---
Pulmonary - PN: Subj Interval history: Mrs. Lazo is an 81-year-old white female who we saw in initial pulmonary consultation on 07/06/2017. At that time, our impressions were: 1. Acute congestive heart failure 2. Arteriosclerotic heart disease. Stent. History of LA 5 according to the patient. Past history of congestive heart failure 3. Chronic edema of the left ankle in the area of replete previous fracture. Look for deep venous thrombophlebitis 4. Previous colon cancer that required resection of the colon resulting in chronic diarrhea. 5. History of atrial fib 6. History of hyperlipidemia 7. Long-term amiodarone use. No evidence of pulmonary side effects 8. History of mild chronic renal failure 9. See past history 07/07/2017. The patient was seen today along with her . The patient's chest x-ray today shows small bilateral pleural effusions in the angles, but is markedly improved since previous films. The patient reports that her breathing is much improved as well. Echocardiogram done 07/06/[address] Gann showed an ejection fraction at 45%, the apex and inferior wall appeared akinetic , grade 3 diastolic dysfunction, left ventricular size was mildly increased, mildly increased left ventricular wall thickness, mildly enlarged right atrium size, the left atrium was mildly dilated, mild aortic sclerosis, mild tricuspid regurgitation, mild pulmonic regurgitation, and right ventricular systolic pressure was 32.09 mmHg. Medications have been reviewed. We made no changes today. Labs been reviewed. White count is 3900 with a normal differential; H&H 9.6/ 29.8; platelet count 229,000; creatinine improved to 1.60, BUN 9, sodium 138, potassium 3.0 (hypokalemia), magnesium 2.4; BNP has improved to 513 07/08/2017. This patient had an acute CVA in the distribution of the left middle cerebral artery. Initially she responded to TPA but this did not last. See neurology note. Chest x-ray shows small residual bilateral pleural effusions. Patient has resolving congestive heart failure. BNP remains elevated 584. Electrolytes are normal. Creatinine is 1.6 with a BUN of 12. Patient's on a regular sinus rhythm. 07/09/2017. This 81-year-old white female was hospitalized with acute congestive heart failure. She did well and was about ready for discharge and had a sudden stroke on the night of 07/07/2017 that left her with left facial paralysis and right body paralysis. She is alert and knows what is going on. Family has made her a DO NOT RESUSCITATE. This patient cannot swallow. She is presently n.p.o. and I have ordered TPN for her. Today's chest x-ray shows about 90% resolution of her congestive heart failure. All of the fluid in the costophrenic angles has resolved. She still has an elevated BNP at 850. Electrolytes are normal. Creatinine stable at 1.6 with a BUN of 17. White count 7800 with 87 segs. Platelets of 267,000. H&H 10.3/33.3. Will follow daily chest x-rays and be n.p.o. for the present time 07/12/2017. This patient was seen along with her female family member. She is a little harder to wake up. She is for brain scan today. She has faint change in her right upper lung that could be an early interstitial infiltrate. Will check her sputum. Sodium is up to 557 and I will change her normal saline at 50 cc an hour to D5W at 50 cc/h. Since she has had a little bit of fever will also get a urinalysis and urine culture I will get a follow-up chest x- ray. Her said that one time in the past steroids, history of atrial fib she is on Decadron which I will stop. Her creatinine is increased to 1.90 with a BUN of 48. White count is 9693 segs. H&H 11.3/36.7. Exam (Progress Note) - Constitutional Vitals: Period Temp Pulse Resp BP Sys/Dorado Pulse Ox Last 24 Hr 97.4 F-99.6 F 57-73 16-20 111-139/52-64 94-99 Exam: Face. Face symmetric. No edema to lips or tongue. Neck. No masses. No meningismus. Lymphatics. No submandibular cervical supraclavicular adenopathy. Chest is wheeze free and fairly clear Heart with distant sounds but no gallop Abdomen is nontender and nondistended; bowel sounds are positive 4 Extremities with nothing to suggest acute deep venous thrombophlebitis; bilateral CHIKIS hose are in use Psychiatric. Hard to arouse. Family says they believe believe the patient is aware of what is going on. Neurologic. Right face weakness. Left body paralysis. Hard to arouse Plan: 07/07/2017. 1. Continue present treatment. 2. The patient states that she will most likely be discharged home today. If she is, she can keep her regularly scheduled follow-up appointment with Dr. Khan. 07/08/2017. 1. Continue on diuretics 2. Follow-up chest x-ray tomorrow also follow BNP and BMP 07/08/2017. 1. See today's note above 2. TPN 3. Daily BNP and chest x-ray 4. Alert no aware of what is going on 5. DO NOT RESUSCITATE has perfect 07/12/2017. 1. See today's note. 2. Sputum for Gram stain culture and sensitivity 3. Brain scan 4 change to D5W at 50 cc an hour. 5 urinalysis and urine culture. 6. Follow-up chest x-ray in the morning Exam (Progress Note) - Constitutional Vitals: Period Temp Pulse Resp BP Sys/Dorado Pulse Ox Last 24 Hr 97.6 F-101 F 118-143 20-30 104-128/58-75 92-96 Results - Labs CBC & BMP: 07/12/17 06:00 07/12/17 06:00 Specialty Discharge - Follow Up or Referrals
[2017-07-12] MEDS ORDERED: ACETAMINOPHEN 325 MG SUPP RECTAL PRN (09:54)
[2017-07-12] MEDS ORDERED: fentaNYL 12 MCG/HR PATCH TRANSDERM SCH (10:00)
[2017-07-12] MEDS: LORazepam 2 MG/1 ML VIAL IV PRN ×5 (10:00→20:27)
--- NOTE | 2017-07-12 14:35 | Physician Query Form ---
CLICK EDIT DOCUMENT TO SELECT QUERY ANSWER --> OK --> SIGN Annie Cisneros RN, CCDS Certified Clinical Amphibian Crewmember W) [phone] (f) [phone] [email or web address] PROVIDERS: Make your selection(s) from the choices in EACH section by typing an "x" and enter comments in the comment section. Please use your independent medical judgment in providing your response. This request does not imply that any particular answer is desired or expected. CLINICAL INDICATORS: (Providers should not edit this section) "Sodium is up to" 157 "and I will change her normal saline at 50 cc an hour to D5W at 50 cc/h." Based on the above, could you clarify the appropriate diagnosis, if significant , that supports the above abnormalities and additional evaluation, monitoring, and/or treatment rendered: ( X) patient is being treated or monitored for hypernatremia ( ) patient is not being treated or monitored for hypernatremia ( ) Other, please specify: ( ) Clinically unable to determine COMMENTS: PLEASE ALSO DOCUMENT RESPONSE IN PROGRESS NOTES AND/OR DISCHARGE SUMMARY Use of terms such as suspected, likely, or probable (associated with a specific diagnosis that is being evaluated, monitored, or treated as if it exists) are acceptable and can be restated in the discharge summary if not ruled out. MTDD
[2017-07-12 16:28] VITALS: BP 110/62
--- NOTE | 2017-07-12 17:25 | Hospitalist Progress Note ---
Assessment and Plan (1) Hospice care Status: Acute Assessment and plan: DC NG. DC all medicines except for comfort medicines. DC all testing including labs and CTs. [facility] end-of-life care with Ativan and morphine. We will start a fentanyl patch. Current Visit: Yes (2) Acute exacerbation of CHF (congestive heart failure) Status: Acute Assessment and plan: See above Current Visit: Yes Qualifiers: Congestive heart failure type: diastolic Qualified Code(s): I50.33 - Acute on chronic diastolic (congestive) heart failure (3) Paroxysmal atrial fibrillation Status: Chronic Assessment and plan: See above Current Visit: No (4) COPD (chronic obstructive pulmonary disease) Status: Chronic Assessment and plan: see above, oxygen for comfort only Current Visit: Yes (5) Stroke due to embolism of left middle cerebral artery Status: Acute Assessment and plan: comfort care Current Visit: Yes Hospitalist: Subjective Interval history: Had long discussion with patient's and [id number]. Patient was currently a DNR. When I walked in she was having difficulty breathing and had diffuse bilateral crackles with some respiratory distress. Patient's desires comfort end-of-life care. We will start morphine and Ativan very frequently as needed discomfort and make her hospice end-of-life care. We will discontinue all consulting consults at this time. Exam - Constitutional Vitals: Period Temp Pulse Resp BP Sys/Dorado Pulse Ox Last 24 Hr 96.4 F-100.4 F 118-141 18-46 102-128/58-75 92-96 Exam: Heart Rate-[tachy] Lungs-[diffuse coarse crackles ] GI-[+bs soft, NT] Neuro unresponsive psych unresponsive General [severe acute distress] Results - Labs CBC & BMP: 07/12/17 06:00 07/12/17 06:00 Lab Results: I have reviewed the past 24 hour labs Specialty Discharge - Follow Up or Referrals
--- NOTE | 2017-07-12 22:45 | Cardiology Progress Note ---
April Bah April, RN, am scribing for, and in the presence of, Cyrus Sylvester MD 22:45. Assessment and Plan (1) Acute CVA (cerebrovascular accident) Status: Acute Assessment and plan: Initial assessment and plan July 12, 2017: Post large stroke Obtunded She has declined anticoagulation in the past, was using aspirin alone I discussed with the patient's of the comfort measures I will loosely follow along with you. Current Visit: Yes (2) Congestive heart failure Status: Chronic Current Visit: Yes Qualifiers: Congestive heart failure type: diastolic Congestive heart failure chronicity: acute on chronic Qualified Code(s): I50.33 - Acute on chronic diastolic (congestive) heart failure (3) CAD (coronary artery disease) Status: Chronic Current Visit: Yes (4) Paroxysmal atrial fibrillation Status: Chronic Current Visit: No Cardiology - PN: Subj Interval history: Pipelines Superintendent: Dr. Sylvester PCP: Dr. Khan SUMMARY: Ms. Lazo is a 81 y/o WF who is admitted July 05, 2017 with acute on chronic diastolic CHF and mitral regurgitation. History of known CAD S/P PCI , PAF (on Amiodarone), chronic diastolic heart failure, COPD, chronic renal insufficiency, chronic pain, mitral regurgitation, GERD, former smoker, hyperlipidemia, and anxiety. On the evening of anticipated discharge she developed an acute CVA with aphasia and left-sided hemiparesis. She was given TPA and her symptoms improved only to return within about an hour. Repeat CT head revealed right middle cerebral artery evolving infarct and small amount of subarachnoid hemorrhage thus limiting our ability to place her on Xarelto or other anticoagulants. Her condition was discussed with her family and they elected to make her a DNR. June 28, 2017 echocardiogram: EF 50%, moderate LVH, moderate MR, mild TR, mild [place]. Carotid ultrasound: No evidence of significant stenosis bilaterally. July 12, 2017: Ms. Lazo is seen resting in bed. She does not respond to stimuli. Family is at bedside. Family has decided to make her comfort measures only. Review of systems: Unobtainable Because she is obtunded Exam (Progress Note) - Constitutional Vitals: Period Temp Pulse Resp BP Sys/Dorado Pulse Ox Last 24 Hr 97.6 F-101 F 118-143 18-30 104-128/58-75 92-96 Exam: General appearance: Mildly tachypneic, ill-appearing. Head exam: Present: normal inspection, normocephalic, atraumatic. Absent: hematoma, laceration Eye exam: Absent: conjunctival injection, periorbital swelling, scleral icterus , laceration to eyelids, jaundice Pupils: Present: PERRL. Absent: constricted, dilated, fixed, irregular, unequal ENT exam: Present: normal exam, normal external ear exam, mucous membranes moist. Neck exam: Present: normal inspection, midline trachea. Absent: masses, lymphadenopathy, tenderness, thyromegaly, carotid bruit Respiratory exam: Present: upper airway rhonchi and coarse breath sounds. Absent: accessory muscle use, chest wall tenderness, wheezing. Cardiovascular exam: Present: Irregularly irregular rate and rhythm. Murmur. Absent: gallop, JVD, rubs GI/Abdominal exam: Present: normal bowel sounds, soft. Absent: distended, firm , hernia, mass, tenderness. Extremities exam: Present:, No Clubbing, No Cyanosis, Upper Extr. Pulses 2+, Lower Extr. Pulses 2+, No significant BLE edema. Capillary refill less than 3 seconds. Musculoskeletal: Present: No Fluid Collection, cannot assess range of Motion Neurological exam: Present: awake, expressive aphasia. Right sided hemiparesis. Follows commands appropriately no unable to move her upper extremity or lower extremity on the right. She has more of a global weakness today. Skin exam: Present: normal color, warm, dry, intact. Absent: cyanosis, diaphoretic, rash, urticaria Result/EKG - Labs CBC & BMP: 07/12/17 06:00 07/12/17 06:00 Lab Results: I have reviewed the past 24 hour labs Labs: Laboratory Results - last 24 hr 07/12/17 07/12/17 07/12/17 06:00 06:00 06:00 WBC 9.6 RBC 4.19 Hgb 11.3 L Hct 36.9 MCV 88.1 MCH 27 MCHC 30.6 L RDW 16.8 Plt Count 278 MPV 10.1 Neut % (Auto) 93.3 H Lymph % (Auto) 3.3 L Graves % (Auto) 2.4 Eos % (Auto) 0.0 Baso % (Auto) 0.1 Neut # (Auto) 9.0 H Lymph # (Auto) 0.3 L Graves # (Auto) 0.2 Eos # (Auto) 0.0 Baso # (Auto) 0.0 Total Counted 100 Immature Gran % 0.9 Nucleated RBC % 0.0 Immature Gran # 0.09 Segmented Neutrophils 96 H Lymphocytes 4 L Nucleated RBCs # 0.00 Platelet Estimate Adequate Giant Platelets Few Immature Plt Fraction 0.0 Hypochromasia 1+ Microcytosis Slight Ovalocytes Slight Sodium 157 H Potassium 4.5 Chloride 122 H Carbon Dioxide 25 Anion Gap 14.5 BUN 48 H Creatinine 1.90 H GFR Calculation 24 BUN/Creatinine Ratio 25.00 H Glucose 152 H Calculated Osmolality 326.0 H Calcium 9.1 Magnesium 2.7 H B-Natriuretic Peptide 992 H - Diagnostic Findings Procedure: Chest x-ray: report reviewed by me Specialty Discharge - Follow Up or Referrals Nga Bah Dale, MD, personally performed the services described in this documentation, ascribed by Coco Chen RN in my presence, and it is both accurate and complete 245 .
[2017-07-13] MEDS: MORPHINE 2 MG/1 ML SYRINGE IV PRN ×2 (01:07→06:33)
[2017-07-13] MEDS: LORazepam 2 MG/1 ML VIAL IV PRN ×2 (01:42→03:37)
--- NOTE | 2017-07-13 11:24 | Discharge Summary ---
Hospital Course - Hospital Course Hospital Course: 81 year old white female with history of SD 5, hypertension, CAD, COPD, complicated pneumonia, asthma, and colon cancer presenting to the ED with a four -day history of progressive shortness of breath and was diagnosed with acute CHF exacerbation. Patient was treated with IV Lasix. Patient had acute CVA while in the hospital due to atrial fib which left her severely disabled despite treatment with TPA. Patient continues to have problems protecting her airway and was aspirating. Patient was having more more respiratory difficulty and she was being seen by pulmonary and cardiology. I met with the yesterday and discuss comfort end-of-life care which she elected to proceed. Patient was placed on a fentanyl patch and given morphine and Ativan for comfort care. Patient was no longer going to be functional due to the severe stroke and did not want to do PEG tube and further testing at this point. Patient this morning at 0712 with at her bedside. - Time spent with patient Time with patient DS: Less than 30 minutes (25 min) Diagnosis - Discharge Diagnosis (1) Hospice care Status: Acute (2) Acute exacerbation of CHF (congestive heart failure) Status: Acute (3) Paroxysmal atrial fibrillation Status: Chronic (4) COPD (chronic obstructive pulmonary disease) Status: Chronic (5) Stroke due to embolism of left middle cerebral artery Status: Acute Specialty Discharge - Follow Up or Referrals Discharge Plan - Discharge Data Disposition: - Discharge Medications No Action Dexlansoprazole [Dexilant] 60 mg PO DAILY Bumetanide Tab [Bumex Tab] 2 mg PO BID Cyanocobalamin Inj [Vitamin B12 Inj] 1,000 mcg IM WE Aspirin EC Tab 325 mg PO DAILY Amiodarone Tab [Cordarone Tab] 200 mg PO DAILY Magnesium Chloride [Mag Delay] 64 mg PO BID Fexofenadine [Carol] 60 mg PO DAILY Bisoprolol [Zebeta] 5 mg PO DIRECTED Potassium Chloride 20 meq PO BID Roflumilast [Daliresp] 500 mcg PO DAILY ALPRAZolam [Alprazolam] 1 mg PO BEDTIME Levalbuterol Neb [Xopenex Neb] 0.63 mg RESP TX RT Q8H amLODIPine [Norvasc] 5 mg PO DAILY - Follow Up or Referral - Forms/Instructions Instructions: Ischemic Stroke (GEN), Hemorrhagic Stroke (GEN) Exam - Constitutional Vitals: Period Temp Pulse Resp BP Sys/Dorado Pulse Ox Last 24 Hr 96.4 F-97.8 F 129-141 16-46 102-110/62-62 DS: Provider Date of admission: 07/05/17 11:40 Primary care physician: . No PCP Attending physician on admission: Darshan Billingsley MD Consults: 07/07/17 16:16 Consult to Occupational Therapy [CONS] Routine Reason for Occupational Therapy: Evaluate and Treat Consult to Physical Therapy [CONS] Routine Reason for Physical Therapy: Evaluate and Treat 07/12/17 17:27 Consult to Case Mgmt/Social Srvs [CONS] Routine Reason for Case Mgmt/Social Srvs: Hospice Referral Discharging clinician: Vickie Bedoya MD
== END 2017-07-13 07:10 | disposition expired | DRG 291 ==
LOC: EDBD → EDUNIT# → N.ED 10:09 → SUATTDRO 11:40 → N.EDINP 12:42 → N.4E 12:55 → N.CC 07-07 16:07 → N.4E 07-09 14:31
PROVIDERS: ADMIT Internal Medicine; ATTEND Internal Medicine